=== PATIENT | male | born 1940 | race American Indian/Alaskan Native ===

== ENCOUNTER 2021-08-15 18:00 | Inpatient (IN) | payer MEDICARE ==
[2021-08-15] MEDS ORDERED: SODIUM CHLORIDE 0.9% 1000 ML IV SOLN IV ONE (21:12)
--- NOTE | 2021-08-15 21:18 | Emergency Department Report ---
ED General Adult HPI - General Chief complaint: Medical Clearance Stated complaint: FEEDING TUBE REPLACEMENT Time Seen by Provider: 08/15/21 21:05 Source: EMS ( EMS documentation not available at time of chart dictation ), RN notes reviewed, old records reviewed Mode of arrival: Stretcher Limitations: Other (Patient is demented and a poor historian) - History of Present Illness Initial comments: Primary CARE doctor: Dr. Edward Pierce This is an elderly 80-year-old gentleman, with a past medical history of Alzheimer's disease, cerebral atherosclerosis, renal insufficiency, major depressive disorder, benign neoplasm of prostate, and hypertension. He is referred to the emergency room [facility] his local [facility], with a [facility] written complaint of "decreased eating, loud coughing/daughter needs feeding tube placement." Temperature documented from fci is 98 degrees, blood pressure 131/65, respirations 17, pulse 69, O2 sat 95% on room air. In the emergency room, the patient is awake and demented. He is moving 4 extremities. The patient was able to eat in the emergency room without difficulty. He is found to have a temperature of 100.8 axillary here in the emergency room. Daughter is Georgina Hussein; [id number]. Patient demented, not able to describe the qualitative nature of symptoms, exacerbating factors relieving f actors or aggravating factors. Enclose [facility] paperwork indicates that this patient is a full code. -: unknown - Related Data Allergies Allergy/AdvReac Type Severity Reaction Status Date / Time CLIFF Inhibitors AdvReac Unknown Verified 08/15/21 18:20 donepezil [From Aricept] AdvReac Unknown Verified 08/15/21 18:20 Penicillins AdvReac Unknown Verified 08/15/21 18:20 ED Review of Systems ROS: Stated complaint: FEEDING TUBE REPLACEMENT Other details as noted in HPI Comment: Unobtainable due to pts medical conditions ED Physical Exam - General Limitations: Other (Patient is demented) General appearance: in no apparent distress - Head Head exam: Present: atraumatic, normocephalic - Eye Eye exam: Present: normal appearance - ENT ENT exam: Present: mucous membranes dry, normal external ear exam - Neck Neck exam: Present: normal inspection, full ROM. Absent: tenderness, meningismus - Respiratory Respiratory exam: Present: rhonchi, decreased breath sounds - Cardiovascular Cardiovascular Exam: Present: regular rate, normal rhythm, normal heart sounds. Absent: bradycardia, tachycardia, irregular rhythm, systolic murmur, diastolic murmur, rubs, gallop - GI/Abdominal GI/Abdominal exam: Present: soft. Absent: distended, tenderness, guarding, rebound, rigid, pulsatile mass - Rectal Rectal exam: Present: deferred - Extremities Exam Extremities exam: Present: normal inspection, other (2+ pulses noted in the bilateral upper and lower extremities. There is no palpable cord. negative Homans sign. Muscular compartments are soft. The pelvis is stable.). Absent: calf tenderness - Back Exam Back exam: Present: normal inspection. Absent: tenderness, CVA tenderness (R), CVA tenderness (L), paraspinal tenderness, vertebral tenderness - Neurological Exam Neurological exam: Present: other (The patient is awake. The patient was 4 extremities. The patient is demented.) - Psychiatric Psychiatric exam: Present: other (The patient is nonverbal) - Skin Skin exam: Present: warm, dry, intact, normal color. Absent: rash ED Course Vital Signs 08/15/21 08/15/21 08/15/21 18:17 21:10 22:20 Temperature 100.8 F H 100.9 F H Pulse Rate 74 Blood Pressure 128/68 [Left] O2 Sat by Pulse 99 Oximetry - Reevaluation(s) Reevaluation #1: 08/15/21 21:17 Differential diagnosis, including but not limited to: Pneumonia, UTI, dehydration, dementia, failure to thrive Assessment and plan: 80-year-old gentleman with change in behavior, decreased appetite, coughing, and fever, suspicious for invasive bacterial illness. Patient is demented and essentially nonverbal. Physical exam noncontributory with the exception of fever. Obtain CT scan of the brain to exclude bleed, x-ray the chest, laboratory studies, EKG, and urinalysis. Start IV fluids. Reassess. Anticipate admission to the medical service for antibiotics and supportive care. Reevaluation #2: 08/15/21 21:18 Patient fed in the emergency room, and passed swallow screen. 08/15/21 22:22 Rectal temperature 100.9 degrees. Found to have hypernatremia, and hypokalemia. Urinalysis pending. Chest x-ray unremarkable. Noncontrast CT scan of the b rain negative for acute findings. IV fluids ordered. We will cover empirically with ceftriaxone. A third generation cephalosporin is structurally dissimilar to penicillin, and is statistically unlikely to cause anaphylactic or anaphylactoid reaction. Hospital physician is paged to arrange admission Reevaluation #3: 08/15/21 22:46 Dr Yuki Mauricio to admit to [facility] ED Medical Decision Making - Lab Data Result diagrams: 08/15/21 21:25 08/15/21 21:25 Vital Signs 08/15/21 08/15/21 18:17 21:10 Temperature 100.8 F H Pulse Rate 74 Blood Pressure 128/68 [Left] O2 Sat by Pulse 99 Oximetry Axillary temperature 100.8 degrees. Lab Results 08/15/21 08/15/21 08/15/21 Range/Units 21:25 21:25 21:25 WBC 13.4 H (4.5-11.0) K/mm3 RBC 4.16 (3.65-5.03) M/mm3 Hgb 12.5 (11.8-15.2) gm/dl Hct 38.6 (35.5-45.6) % MCV 93 (84-94) fl MCH 30 (28-32) pg MCHC 32 (32-34) % RDW 13.4 (13.2-15.2) % Plt Count 330 (140-440) K/mm3 Lymph % (Auto) 5.3 L (13.4-35.0) % [place] % (Auto) 6.7 (0.0-7.3) % Eos % (Auto) 0.2 (0.0-4.3) % Baso % (Auto) 0.2 (0.0-1.8) % Lymph # (Auto) 0.7 L (1.2-5.4) K/mm3 [place] # (Auto) 0.9 H (0.0-0.8) K/mm3 Eos # (Auto) 0.0 (0.0-0.4) K/mm3 Baso # (Auto) 0.0 (0.0-0.1) K/mm3 Seg Neutrophils % 87.6 H (40.0-70.0) % Seg Neutrophils # 11.7 H (1.8-7.7) K/mm3 PT 15.2 H (12.2-14.9) Sec. INR 1.08 (0.87-1.13) APTT 40.4 H (24.2-36.6) Sec. Sodium 152 H (137-145) mmol/L Potassium 3.4 L (3.6-5.0) mmol/L Chloride 112.0 H (98-107) mmol/L Carbon Dioxide 26 (22-30) mmol/L Anion Gap 17 mmol/L BUN 20 (9-20) mg/dL Creatinine 0.8 (0.8-1.3) mg/dL Estimated GFR > 60 ml/min BUN/Creatinine Ratio 25 % Glucose 164 H (75-100) mg/dL Calcium 9.2 (8.4-10.2) mg/dL Magnesium 2.70 H (1.7-2.3) mg/dL Total Bilirubin 0.30 (0.1-1.2) mg/dL AST 24 (5-40) units/L ALT 14 (7-56) units/L Alkaline Phosphatase 72 (35-129) units/L Total Creatine Kinase 66 (55-170) units/L Troponin T < 0.010 (0.00-0.029) ng/mL Total Protein 7.5 (6.3-8.2) g/dL Albumin 3.3 L (3.9-5) g/dL Albumin/Globulin Ratio 0.8 % - EKG Data -: EKG Interpreted by Oh EKG shows normal: sinus rhythm Rate: normal - EKG Data When compared to previous EKG there are: previous EKG unavailable 08/15/21 22:21 The EKG is interpreted at 22: 12 Sinus rhythm, 82 bpm. Normal axis, normal P wave axis, left ventricular hypertrophy, QTC 5 6 1 ms. Abnormal EKG. Not a STEMI. - Radiology Data Radiology results: report reviewed, image reviewed CT HEAD WITHOUT CONTRAST INDICATION / CLINICAL INFORMATION: Dementia, decreased appetite, change in behavior. TECHNIQUE: All CT scans at this location are performed using CT dose reduction for ALARA by means of automated exposure control. COMPARISON: None available. FINDINGS: HEMORRHAGE: No evidence of intracranial hemorrhage or extra-axial fluid collection. EXTRA-AXIAL SPACES: Cortical sulci and sylvian fissures are enlarged reflecting a degree of parenchymal volume loss which is much greater than expected even allowing for the patient's age of 80 years. Basilar cisterns have an unremarkable appearance. VENTRICULAR SYSTEM: The third and lateral ventricles are enlarged reflecting presence of age related parenchymal volume loss. CEREBRAL PARENCHYMA: Periventricular and deep white matter lucency is observed. This is probably secondary to microvascular ischemic change. There is no indication of recent infarction. No areas of encephalomalacia are identified. Profound temporal lobe atrophy is present bilaterally. In addition there is disproportionate bilateral frontal lobe atrophy. Possibility of a frontopolar dementia versus Alzheimer's dementia is considered. MIDLINE SHIFT OR HERNIATION: There is no mass effect. CEREBELLUM / BRAINSTEM: Brainstem has an unremarkable appearance. Moderate cerebellar atrophy is noted. MIDLINE STRUCTURES:Pituitary gland has an unr emarkable appearance. No abnormalities are seen in the pineal region. INTRACRANIAL VESSELS:Calcified atherosclerotic plaque is present along the course of the cavernous segments of both internal carotid arteries. CRANIOCERVICAL JUNCTION:No significant abnormality. ORBITS: Status post right- sided cataract surgery. No additional abnormality. SOFT TISSUES of HEAD: No significant abnormality. CALVARIUM: Evaluation of bone windows reveals no abnormalities. PARANASAL SINUSES / MASTOID AIR CELLS: Retention cyst or polyp is identified at the base of the right maxillary sinus. Mucosal thickening is pre sent within anterior ethmoid air cells on the right. Paranasal sinuses otherwise appear clear. Normal pneumatization of the mastoid air cells is observed bilaterally. ADDITIONAL FINDINGS: None. IMPRESSION: 1. Profound bilateral frontal lobe and temporal lobe atrophy. 2. No acute intracranial abnormality. Signer Name: Alfonso Frnaks MD Signed: 08/15/2021 8:42 PM Workstation Name: [id number] Critical care attestation.: If time is entered above; I have spent that time in minutes in the direct care of this critically ill patient, excluding procedure time. ED Disposition Clinical Impression: Acute febrile illness, Dementia, Hypernatremia, Hypokalemia, Dehydration, SIRS (systemic inflammatory response syndrome) Disposition: 09 ADMITTED INPATIENT Is pt being admited?: Yes Does the pt Need Aspirin: No Condition: Fair
--- NOTE | 2021-08-15 21:47 | Cat Scan Report ---
CT HEAD WITHOUT CONTRAST INDICATION / CLINICAL INFORMATION: Dementia, decreased appetite, change in behavior. TECHNIQUE: All CT scans at this location are performed using CT dose reduction for ALARA by means of automated e xposure control. COMPARISON: None available. FINDINGS: HEMORRHAGE: No evidence of intracranial hemorrhage or extra-axial fluid collection. EXTRA-AXIAL SPACES: Cortical sulci and sylvian fissures are enlarged reflecting a degree of parenchym al volume loss which is much greater than expected even allowing for the patient's age of 80 years. B asilar cisterns have an unremarkable appearance. VENTRICULAR SYSTEM: The third and lateral ventricles are enlarged reflecting presence of age related parenchymal volume loss. CEREBRAL PARENCHYMA: Periventricular and deep white matter lucency is observed. This is probably seco ndary to microvascular ischemic change. There is no indication of recent infarction. No areas of ence phalomalacia are identified. Profound temporal lobe atrophy is present bilaterally. In addition there is disproportionate bilateral frontal lobe atrophy. Possibility of a frontopolar dementia versus Alz heimer's dementia is considered. MIDLINE SHIFT OR HERNIATION: There is no mass effect. CEREBELLUM / BRAINSTEM: Brainstem has an unremarkable appearance. Moderate cerebellar atrophy is note d. MIDLINE STRUCTURES:Pituitary gland has an unremarkable appearance. No abnormalities are seen in the p ineal region. INTRACRANIAL VESSELS:Calcified atherosclerotic plaque is present along the course of the cavernous se gments of both internal carotid arteries. CRANIOCERVICAL JUNCTION:No significant abnormality. ORBITS: Status post right-sided cataract surgery. No additional abnormality. SOFT TISSUES of HEAD: No significant abnormality. CALVARIUM: Evaluation of bone windows reveals no abnormalities. PARANASAL SINUSES / MASTOID AIR CELLS: Retention cyst or polyp is identified at the base of the right maxillary sinus. Mucosal thickening is present within anterior ethmoid air cells on the right. Paran mayank sinuses otherwise appear clear. Normal pneumatization of the mastoid air cells is observed bilat erally. ADDITIONAL FINDINGS: None. IMPRESSION: 1. Profound bilateral frontal lobe and temporal lobe atrophy. 2. No acute intracranial abnormality. Signer Name: Alfonso Franks MD Signed: 08/15/2021 9:42 PM Workstation Name: [id number]
[2021-08-15 21:49] LABS: Basophils % (Auto) 0.2 % (0.0-1.8); Eosinophils % (Auto) 0.2 % (0.0-4.3); Hematocrit 38.6 % (35.5-45.6); Hemoglobin 12.5 gm/dl (11.8-15.2); Lymphocytes # (Auto) 0.7 K/mm3 (1.2-5.4); Lymphocytes % (Auto) 5.3 % (13.4-35.0); Mean Corpuscular HGB Conc 32 % (32-34); Mean Corpuscular Volume 93 fl (84-94); Monocytes # (Auto) 0.9 K/mm3 (0.0-0.8); Monocytes % (Auto) 6.7 % (0.0-7.3); Platelet Count 330 K/mm3 (140-440); Red Blood Count 4.16 M/mm3 (3.65-5.03); Red Cell Distribution Width 13.4 % (13.2-15.2)
[2021-08-15 22:05] LABS: Alanine Aminotransferase 14 units/L (7-56); Albumin 3.3 g/dL (3.9-5); BUN/Creatinine Ratio 25; Blood Urea Nitrogen 20 mg/dL (9-20); Calcium 9.2 mg/dL (8.4-10.2); Hemolysis Index 5
[2021-08-15 22:19] LABS: INR 1.08 (0.87-1.13)
[2021-08-15 22:20] LABS: Partial Thromboplastin Time 40.4 Sec. (24.2-36.6)
[2021-08-15] MEDS ORDERED: POTASSIUM CHLORIDE 10 MEQ 10 MEQ/100 ML BAG IV ONE (22:20)
[2021-08-15] MEDS ORDERED: ACETAMINOPHEN 650 MG RECT SUPP PR ONE (22:21)
[2021-08-15] MEDS ORDERED: cefTRIAXone/NS 1 GM/50 ML 1 GM/50 ML BAG IV ONE (22:22)
--- NOTE | 2021-08-15 23:04 | XRay Report ---
CHEST 1 VIEW 08/15/2021 9:47 PM INDICATION / CLINICAL INFORMATION: Fever. Decreased appetite. COMPARISON: None available. FINDINGS: SUPPORT DEVICES: None. HEART / MEDIASTINUM: No significant abnormality. LUNGS / PLEURA: There are bibasilar airspace opacities. The lungs are otherwise clear. No significant pleural effusion. No pneumothorax. ADDITIONAL FINDINGS: No significant additional findings. IMPRESSION: Bibasilar airspace opacities could represent pneumonia given the provided history of fever. Atelectas is is also a consideration. Signer Name: Mandeep Schaffer MD Signed: 08/15/2021 11:00 PM Workstation Name: [id number]
[2021-08-15] MEDS ORDERED: ACETAMINOPHEN 325 MG TAB PO PRN (23:16)
[2021-08-15] MEDS ORDERED: MORPHINE 2 MG/1 ML INJ IV PRN (23:16)
[2021-08-15] MEDS ORDERED: ONDANSETRON 4 MG/2 ML INJ IV PRN (23:16)
[2021-08-15] MEDS ORDERED: MAGNESIUM HYDROXIDE (MOM) ORAL LIQD UDC PO PRN (23:16)
[2021-08-15] MEDS ORDERED: MORPHINE 4 MG/1 ML INJ IV PRN (23:16)
[2021-08-15] MEDS ORDERED: SODIUM CHLORIDE 0.9% 1000 ML 1,000 ML ONE (23:22)
--- NOTE | 2021-08-15 23:28 | History and Physical Report ---
History of Present Illness Date of examination: 08/15/21 Date of admission: 08/15/2021 Chief complaint: Weakness Fever History of present illness: 80-year-old male with known history of dementia, cerebral atherosclerosis, BPH, hypertension, renal insufficiency resident of a [facility] Sent to the emergency room today for evaluation of generalized weakness and Fe jyoti Most of the history was obtained from the ER staff as patient. Upon arrival in the emergency room patient had a temperature of 100.8 F.(Axillary) Work-up in the emergency room reveals leukocytosis of 13.4, sodium of 152, potassium of 3.4 lactic acid of 3.3. Chest x-ray shows bibasilar airspace opacities which could represent pneumonia. Past History Past Medical History: hypertension, renal failure, other (Dementia,depression,BPH) Past Surgical History: No surgical history Social history: other (Lives in a Retirement) Family history: no significant family history Medications and Allergies Allergies Allergy/AdvReac Type Severity Reaction Status Date / Time CLIFF Inhibitors AdvReac Unknown Verified 08/15/21 18:20 donepezil [From Aricept] AdvReac Unknown Verified 08/15/21 18:20 Penicillins AdvReac Unknown Verified 08/15/21 18:20 Active Meds: Active Medications Acetaminophen (Acetaminophen 325 Mg Tab) 650 mg PO Q4H PRN PRN Reason: Pain MILD(1-3)/Fever >100.5/JONES Sodium Chloride (Nacl 0.45% 1000 Ml) 1,000 mls @ 125 mls/hr IV DIRECT SACHA Ondansetron HCl (Ondansetron 4 Mg/2 Ml Inj) 4 mg IV Q8H PRN PRN Reason: Nausea And Vomiting Sodium Chloride (Sodium Chloride 0.9% 10 Ml Flush Syringe) 10 ml IV BID SACHA Sodium Chloride (Sodium Chloride 0.9% 10 Ml Flush Syringe) 10 ml IV PRN PRN PRN Reason: LINE FLUSH Review of Systems ROS unobtainable: due to mental status Exam - Constitutional Vitals: Temp Pulse Resp BP Pulse Ox 100.9 F H 74 128/68 99 08/15/21 22:20 08/15/21 18:17 08/15/21 18:17 08/15/21 18:17 General appearance: Present: no acute distress, well-nourished, other (Dry oral Mucosa) - EENT Eyes: Present: PERRL, EOM intact. Absent: scleral icterus ENT: hearing intact, clear oral mucosa, dentition normal - Neck Neck: Present: supple, normal ROM - Respiratory Respiratory effort: normal Respiratory: bilateral: CTA - Cardiovascular Rhythm: regular Heart Sounds: Present: S1 & S2. Absent: gallop, systolic murmur, diastolic murmur, rub, click - Extremities Extremities: no ischemia, pulses intact, pulses symmetrical, No edema, normal temperature, normal color, Full ROM Peripheral Pulses: within normal limits - Abdominal General gastrointestinal: Present: soft, non-tender, non-distended, normal bowel sounds. Absent: mass - Integumentary Integumentary: Present: clear, warm, dry, decreased turgor. Absent: rash - Musculoskeletal Musculoskeletal: strength equal bilaterally - Psychiatric Psychiatric: cooperative - Neurologic Neurologic: CNII-XII intact, moves all extremities, other (Nonverbal) HEART Score - HEART Score Troponin: Troponin T < 0.010 ng/mL (0.00-0.029) 08/15/21 21:25 Results - Labs CBC & Chem 7: 08/15/21 21:25 08/15/21 21:25 Labs: Abnormal lab results 08/15/21 08/15/21 08/15/21 Range/Units 21:25 21:25 21:25 WBC 13.4 H (4.5-11.0) K/mm3 Lymph % (Auto) 5.3 L (13.4-35.0) % Lymph # (Auto) 0.7 L (1.2-5.4) K/mm3 [place] # (Auto) 0.9 H (0.0-0.8) K/mm3 Seg Neutrophils % 87.6 H (40.0-70.0) % Seg Neutrophils # 11.7 H (1.8-7.7) K/mm3 PT 15.2 H (12.2-14.9) Sec. APTT 40.4 H (24.2-36.6) Sec. Sodium 152 H (137-145) mmol/L Potassium 3.4 L (3.6-5.0) mmol/L Chloride 112.0 H (98-107) mmol/L Glucose 164 H (75-100) mg/dL Lactic Acid (0.7-2.0) mmol/L Magnesium 2.70 H (1.7-2.3) mg/dL Albumin 3.3 L (3.9-5) g/dL 08/15/21 Range/Units 21:25 WBC (4.5-11.0) K/mm3 Lymph % (Auto) (13.4-35.0) % Lymph # (Auto) (1.2-5.4) K/mm3 [place] # (Auto) (0.0-0.8) K/mm3 Seg Neutrophils % (40.0-70.0) % Seg Neutrophils # (1.8-7.7) K/mm3 PT (12.2-14.9) Sec. APTT (24.2-36.6) Sec. Sodium (137-145) mmol/L Potassium (3.6-5.0) mmol/L Chloride (98-107) mmol/L Glucose (75-100) mg/dL Lactic Acid 3.30 H* (0.7-2.0) mmol/L Magnesium (1.7-2.3) mg/dL Albumin (3.9-5) g/dL Assessment and Plan - Patient Problems (1) Acute febrile illness Current Visit: Yes Status: Acute Plan to address problem: Etiology is unclear. Possible underlying pneumonia. Patient placed on empiric IV antibiotics. Will await culture results. (2) Dehydration Current Visit: Yes Status: Acute Plan to address problem: Patient commenced on IV fluid. Will monitor inputs and outputs. Will monitor chemistry closely. (3) Dementia Current Visit: Yes Status: Acute Plan to address problem: Will place patient on his routine home medications. (4) Hypernatremia Current Visit: Yes Status: Acute Plan to address problem: Possibly secondary to dehydration. Will continue on IV fluid and monitor chemistry. (5) Hypokalemia Current Visit: Yes Status: Acute Plan to address problem: Potassium will be repleted and will monitor chemistry. (6) DVT prophylaxis Current Visit: Yes Status: Acute Plan to address problem: Patient placed on subcutaneous heparin. (7) Full code status Current Visit: Yes Status: Acute Plan to address problem: Patient is full code.
[2021-08-16 00:28] LABS: Bilirubin,Urine NEG (Negative); Blood,Urine SM (Negative); Color,Urine Yellow (Yellow); Mucus,Urine 1+ /HPF; Urobilinogen,Urine < 2.0 mg/dL (<2.0)
[2021-08-16] MEDS: HEPARIN 5,000 UNIT/1 ML VIAL SUB-Q SCH ×3 (05:09→22:47)
[2021-08-16] MEDS: SODIUM CHLORIDE 0.45% 1000 ML 1,000 ML IV SCH ×2 (05:29→16:36)
[2021-08-16] MEDS ORDERED: AZITHROMYCIN/NS 500 MG/250 ML 500 MG/250 ML BAG IV SCH (08:00)
[2021-08-16 10:08] LABS: Basophils % (Auto) 0.2 % (0.0-1.8); Eosinophils # (Auto) 0.1 K/mm3 (0.0-0.4); Eosinophils % (Auto) 0.9 % (0.0-4.3); Hematocrit 34.2 % (35.5-45.6); Hemoglobin 10.9 gm/dl (11.8-15.2); Lymphocytes % (Auto) 8.9 % (13.4-35.0); Mean Corpuscular HGB Conc 32 % (32-34); Mean Corpuscular Volume 93 fl (84-94); Monocytes # (Auto) 0.9 K/mm3 (0.0-0.8); Monocytes % (Auto) 7.4 % (0.0-7.3); Platelet Count 310 K/mm3 (140-440); Red Blood Count 3.69 M/mm3 (3.65-5.03); Red Cell Distribution Width 13.1 % (13.2-15.2)
[2021-08-16 10:17] LABS: BUN/Creatinine Ratio 23; Blood Urea Nitrogen 14 mg/dL (9-20); Calcium 8.9 mg/dL (8.4-10.2); Hemolysis Index 10
--- NOTE | 2021-08-16 11:06 | Progress Note ---
Assessment and Plan Assessment and plan: 80-year-old male with known history of dementia, cerebral atherosclerosis, BPH, hypertension, renal insufficiency resident of a halfway Sent to the emergency room today for evaluation of generalized weakness and Fever. The patient is nonverbal and the history was obtained from the ER staff and the daughter. Upon arrival in the emergency room patient had a temperature of 100.8 F.(Axillary) Work-up in the emergency room reveals leukocytosis of 13.4, sodium of 152, potassium of 3.4 lactic acid of 3.3. Chest x-ray revealed bibasilar airspace opacities [employer] sales representative of pneumonia. The patient is admitted with diagnosis of sepsis, present on admission, bilateral pneumonia, Alzheimer's dementia, hyponatremia, hypokalemia. Severe sepsis. Patient meets criteria given the leukocytosis, fever and diagnosis of pneumonia as well as lactic acidosis. Bilateral pneumonia Alzheimer's dementia. Patient is nonverbal at baseline Hypernatremia Hypokalemia Protein calorie malnutrition. 08/16/2021. Continue IV antibiotics and follow-up blood, sputum and urine cultures. Continue hypotonic IV fluid hydration with half-normal saline for hypernatremia. Replete potassium as needed. History Interval history: No new issues overnight Hospitalist Physical - Constitutional Vitals: Temp Pulse Resp BP Pulse Ox 98.6 F 78 22 156/85 96 08/16/21 05:00 08/16/21 05:00 08/16/21 05:00 08/16/21 05:00 08/16/21 05:00 General appearance: Present: no acute distress, well-nourished, other (Dry oral Mucosa) - EENT Eyes: Present: PERRL, EOM intact ENT: hearing intact, clear oral mucosa, dentition normal - Neck Neck: Present: supple, normal ROM - Respiratory Respiratory effort: normal Respiratory: bilateral: CTA - Cardiovascular Rhythm: regular Heart Sounds: Present: S1 & S2. Absent: gallop, rub - Extremities Extremities: no ischemia, No edema, Full ROM - Abdominal General gastrointestinal: soft, non-tender, non-distended, normal bowel sounds - Integumentary Integumentary: Present: clear, warm, dry - Neurologic Neurologic: CNII-XII intact, moves all extremities HEART Score - HEART Score Troponin: Troponin T < 0.010 ng/mL (0.00-0.029) 08/15/21 21:25 Results - Labs CBC & Chem 7: 08/16/21 09:44 08/16/21 09:44 Labs: Laboratory Last Values WBC 11.6 K/mm3 (4.5-11.0) H 08/16/21 09:44 RBC 3.69 M/mm3 (3.65-5.03) 08/16/21 09:44 Hgb 10.9 gm/dl (11.8-15.2) L 08/16/21 09:44 Hct 34.2 % (35.5-45.6) L 08/16/21 09:44 MCV 93 fl (84-94) 08/16/21 09:44 MCH 30 pg (28-32) 08/16/21 09:44 MCHC 32 % (32-34) 08/16/21 09:44 RDW 13.1 % (13.2-15.2) L 08/16/21 09:44 Plt Count 310 K/mm3 (140-440) 08/16/21 09:44 Lymph % (Auto) 8.9 % (13.4-35.0) L 08/16/21 09:44 [place] % (Auto) 7.4 % (0.0-7.3) H 08/16/21 09:44 Eos % (Auto) 0.9 % (0.0-4.3) 08/16/21 09:44 Baso % (Auto) 0.2 % (0.0-1.8) 08/16/21 09:44 Lymph # (Auto) 1.0 K/mm3 (1.2-5.4) L 08/16/21 09:44 [place] # (Auto) 0.9 K/mm3 (0.0-0.8) H 08/16/21 09:44 Eos # (Auto) 0.1 K/mm3 (0.0-0.4) 08/16/21 09:44 Baso # (Auto) 0.0 K/mm3 (0.0-0.1) 08/16/21 09:44 Seg Neutrophils % 82.6 % (40.0-70.0) H 08/16/21 09:44 Seg Neutrophils # 9.6 K/mm3 (1.8-7.7) H 08/16/21 09:44 PT 15.2 Sec. (12.2-14.9) H 08/15/21 21:25 INR 1.08 (0.87-1.13) 08/15/21 21:25 APTT 40.4 Sec. (24.2-36.6) H 08/15/21 21:25 Sodium 152 mmol/L (137-145) H 08/16/21 09:44 Potassium 3.4 mmol/L (3.6-5.0) L 08/16/21 09:44 Chloride 115.4 mmol/L (98-107) H 08/16/21 09:44 Carbon Dioxide 26 mmol/L (22-30) 08/16/21 09:44 Anion Gap 14 mmol/L 08/16/21 09:44 BUN 14 mg/dL (9-20) 08/16/21 09:44 Creatinine 0.6 mg/dL (0.8-1.3) L 08/16/21 09:44 Estimated GFR > 60 ml/min 08/16/21 09:44 BUN/Creatinine Ratio 23 % 08/16/21 09:44 Glucose 92 mg/dL (75-100) 08/16/21 09:44 Lactic Acid 1.10 mmol/L (0.7-2.0) 08/16/21 09:44 Calcium 8.9 mg/dL (8.4-10.2) 08/16/21 09:44 Magnesium 2.70 mg/dL (1.7-2.3) H 08/15/21 21:25 Total Bilirubin 0.30 mg/dL (0.1-1.2) 08/15/21 21:25 AST 24 units/L (5-40) 08/15/21 21:25 ALT 14 units/L (7-56) 08/15/21 21:25 Alkaline Phosphatase 72 units/L (35-129) 08/15/21 21:25 Total Creatine Kinase 66 units/L (55-170) 08/15/21 21:25 Troponin T < 0.010 ng/mL (0.00-0.029) 08/15/21 21:25 Total Protein 7.5 g/dL (6.3-8.2) 08/15/21 21:25 Albumin 3.3 g/dL (3.9-5) L 08/15/21 21:25 Albumin/Globulin Ratio 0.8 % 08/15/21 21:25 Urine Color Yellow (Yellow) 08/16/21 00:02 Urine Turbidity Clear (Clear) 08/16/21 00:02 Urine pH 5.0 (5.0-7.0) 08/16/21 00:02 Ur Specific [place] 1.025 (1.003-1.030) 08/16/21 00:02 Urine Protein 30 mg/dl mg/dL (Negative) 08/16/21 00:02 Urine Glucose (UA) Neg mg/dL (Negative) 08/16/21 00:02 Urine Ketones Neg mg/dL (Negative) 08/16/21 00:02 Urine Blood Sm (Negative) 08/16/21 00:02 Urine Nitrite Neg (Negative) 08/16/21 00:02 Urine Bilirubin Neg (Negative) 08/16/21 00:02 Urine Urobilinogen < 2.0 mg/dL (<2.0) 08/16/21 00:02 Ur Leukocyte Esterase Neg (Negative) 08/16/21 00:02 Urine WBC (Auto) 3.0 /HPF (0.0-6.0) 08/16/21 00:02 Urine RBC (Auto) 5.0 /HPF (0.0-6.0) 08/16/21 00:02 U Epithel Cells (Auto) < 1.0 /HPF (0-13.0) 08/16/21 00:02 Urine Mucus 1+ /HPF 08/16/21 00:02 Microbiology: Microbiology 08/15/21 21:25 Peripheral/Venous Blood Culture - Preliminary Culture in Progress 08/15/21 21:25 Peripheral/Venous Blood Culture - Preliminary Culture in Progress Carpenter/IV: Voiding Method Indwelling Catheter Active Medications - Current Medications Current Medications: Generic Name Dose Route Start Last Admin Trade Name Freq PRN Reason Stop Dose Admin Acetaminophen 650 mg 08/15/21 23:16 Acetaminophen 325 Mg Tab PO Q4H PRN Pain MILD(1-3)/Fever >100.5/JONES Azithromycin 500 mg 08/17/21 10:00 Azithromycin 250 Mg Tab PO 08/20/21 10:01 QDAY SACHA Heparin Sodium (Porcine) 5,000 unit 08/16/21 06:00 08/16/21 05:09 Heparin 5,000 Unit/1 Ml Vial SUB-Q 5,000 unit Q8HR SACHA Administration Sodium Chloride 1,000 mls @ 125 mls/hr 08/15/21 23:45 08/16/21 05:29 Nacl 0.45% 1000 Ml IV 125 mls/hr DIRECT SACHA Administration Ceftriaxone Sodium 1 gm in 50 mls @ 100 mls/hr 08/16/21 22:00 Rocephin/Ns 1 Gm/50 Ml IV 08/20/21 23:59 Q24H [facility] Protocol Azithromycin 500 mg in 250 mls @ 250 mls/hr 08/16/21 08:00 Zithromax/Ns IV 08/16/21 14:00 Q24H [facility] Protocol Magnesium Hydroxide 30 ml 08/15/21 23:16 Magnesium Hydroxide (Mom) Oral Liqd Udc PO Q4H PRN Constipation Morphine Sulfate 2 mg 08/15/21 23:16 Morphine 2 Mg/1 Ml Inj IV Q4H PRN Pain, Moderate (4-6) Morphine Sulfate 4 mg 08/15/21 23:16 Morphine 4 Mg/1 Ml Inj IV Q4H PRN Pain , Severe (7-10) Ondansetron HCl 4 mg 08/15/21 23:16 Ondansetron 4 Mg/2 Ml Inj IV Q8H PRN Nausea And Vomiting Sodium Chloride 10 ml 08/16/21 10:00 Sodium Chloride 0.9% 10 Ml Flush Syringe IV BID SACHA Sodium Chloride 10 ml 08/15/21 23:16 Sodium Chloride 0.9% 10 Ml Flush Syringe IV PRN PRN LINE FLUSH
[2021-08-16] MEDS: cefTRIAXone/NS 1 GM/50 ML 1 GM/50 ML BAG IV SCH (22:47)
[2021-08-17] MEDS: SODIUM CHLORIDE 0.45% 1000 ML 1,000 ML IV SCH ×2 (03:09→12:08)
[2021-08-17] MEDS: AZITHROMYCIN 250 MG TAB PO SCH (09:25)
--- NOTE | 2021-08-17 12:43 | Progress Note ---
Assessment and Plan Assessment and plan: 80-year-old male with known history of dementia, cerebral atherosclerosis, BPH, hypertension, renal insufficiency resident of a [facility]ci Sent to the emergency room today for evaluation of generalized weakness and Fever. The patient is nonverbal and the history was obtained from the ER staff and the daughter. Upon arrival in the emergency room patient had a temperature of 100.8 F.(Axillary) Work-up in the emergency room reveals leukocytosis of 13.4, sodium of 152, potassium of 3.4 lactic acid of 3.3. Chest x-ray revealed bibasilar airspace opacities sales development representative of pneumonia. The patient is admitted with diagnosis of sepsis, present on admission, bilateral pneumonia, Alzheimer's dementia, hyponatremia, hypokalemia. Severe sepsis. Patient meets criteria given the leukocytosis, fever and diagnosis of pneumonia as well as lactic acidosis. Bilateral pneumonia Alzheimer's dementia. Patient is nonverbal at baseline Hypernatremia Hypokalemia Protein calorie malnutrition. 08/16/2021. Continue IV antibiotics and follow-up blood, sputum and urine cultures. Continue hypotonic IV fluid hydration with half-normal saline for hypernatremia. Replete potassium as needed. 08/17/2021. Patient has slight improvement in leukocytosis and blood cultures remain negative. Speech therapy recommends pured diet with thin liquids. Continue hypertonic saline for hypernatremia. Anticipate discharge in the next 1 to 2 days History Interval history: No new issues overnight Hospitalist Physical - Constitutional Vitals: Temp Pulse Resp BP Pulse Ox 98.0 F 60 16 153/85 98 08/17/21 05:38 08/17/21 05:38 08/17/21 05:38 08/17/21 05:38 08/17/21 05:38 General appearance: Present: no acute distress, well-nourished, other (Dry oral Mucosa) - EENT Eyes: Present: PERRL, EOM intact ENT: hearing intact, clear oral mucosa, dentition normal - Neck Neck: Present: supple, normal ROM - Respiratory Respiratory effort: normal Respiratory: bilateral: CTA - Cardiovascular Rhythm: regular Heart Sounds: Present: S1 & S2. Absent: gallop, rub - Extremities Extremities: no ischemia, No edema, Full ROM - Abdominal General gastrointestinal: soft, non-tender, non-distended, normal bowel sounds - Integumentary Integumentary: Present: clear, warm, dry - Neurologic Neurologic: CNII-XII intact, moves all extremities HEART Score - HEART Score Troponin: Troponin T < 0.010 ng/mL (0.00-0.029) 08/15/21 21:25 Results - Labs CBC & Chem 7: 08/16/21 09:44 08/16/21 09:44 Labs: Laboratory Last Values WBC 11.6 K/mm3 (4.5-11.0) H 08/16/21 09:44 RBC 3.69 M/mm3 (3.65-5.03) 08/16/21 09:44 Hgb 10.9 gm/dl (11.8-15.2) L 08/16/21 09:44 Hct 34.2 % (35.5-45.6) L 08/16/21 09:44 MCV 93 fl (84-94) 08/16/21 09:44 MCH 30 pg (28-32) 08/16/21 09:44 MCHC 32 % (32-34) 08/16/21 09:44 RDW 13.1 % (13.2-15.2) L 08/16/21 09:44 Plt Count 310 K/mm3 (140-440) 08/16/21 09:44 Lymph % (Auto) 8.9 % (13.4-35.0) L 08/16/21 09:44 [place] % (Auto) 7.4 % (0.0-7.3) H 08/16/21 09:44 Eos % (Auto) 0.9 % (0.0-4.3) 08/16/21 09:44 Baso % (Auto) 0.2 % (0.0-1.8) 08/16/21 09:44 Lymph # (Auto) 1.0 K/mm3 (1.2-5.4) L 08/16/21 09:44 [place] # (Auto) 0.9 K/mm3 (0.0-0.8) H 08/16/21 09:44 Eos # (Auto) 0.1 K/mm3 (0.0-0.4) 08/16/21 09:44 Baso # (Auto) 0.0 K/mm3 (0.0-0.1) 08/16/21 09:44 Seg Neutrophils % 82.6 % (40.0-70.0) H 08/16/21 09:44 Seg Neutrophils # 9.6 K/mm3 (1.8-7.7) H 08/16/21 09:44 PT 15.2 Sec. (12.2-14.9) H 08/15/21 21:25 INR 1.08 (0.87-1.13) 08/15/21 21:25 APTT 40.4 Sec. (24.2-36.6) H 08/15/21 21:25 Sodium 152 mmol/L (137-145) H 08/16/21 09:44 Potassium 3.4 mmol/L (3.6-5.0) L 08/16/21 09:44 Chloride 115.4 mmol/L (98-107) H 08/16/21 09:44 Carbon Dioxide 26 mmol/L (22-30) 08/16/21 09:44 Anion Gap 14 mmol/L 08/16/21 09:44 BUN 14 mg/dL (9-20) 08/16/21 09:44 Creatinine 0.6 mg/dL (0.8-1.3) L 08/16/21 09:44 Estimated GFR > 60 ml/min 08/16/21 09:44 BUN/Creatinine Ratio 23 % 08/16/21 09:44 Glucose 92 mg/dL (75-100) 08/16/21 09:44 Lactic Acid 1.10 mmol/L (0.7-2.0) 08/16/21 09:44 Calcium 8.9 mg/dL (8.4-10.2) 08/16/21 09:44 Magnesium 2.70 mg/dL (1.7-2.3) H 08/15/21 21:25 Total Bilirubin 0.30 mg/dL (0.1-1.2) 08/15/21 21:25 AST 24 units/L (5-40) 08/15/21 21:25 ALT 14 units/L (7-56) 08/15/21 21:25 Alkaline Phosphatase 72 units/L (35-129) 08/15/21 21:25 Total Creatine Kinase 66 units/L (55-170) 08/15/21 21:25 Troponin T < 0.010 ng/mL (0.00-0.029) 08/15/21 21:25 Total Protein 7.5 g/dL (6.3-8.2) 08/15/21 21:25 Albumin 3.3 g/dL (3.9-5) L 08/15/21 21:25 Albumin/Globulin Ratio 0.8 % 08/15/21 21:25 Urine Color Yellow (Yellow) 08/16/21 00:02 Urine Turbidity Clear (Clear) 08/16/21 00:02 Urine pH 5.0 (5.0-7.0) 08/16/21 00:02 Ur Specific [place] 1.025 (1.003-1.030) 08/16/21 00:02 Urine Protein 30 mg/dl mg/dL (Negative) 08/16/21 00:02 Urine Glucose (UA) Neg mg/dL (Negative) 08/16/21 00:02 Urine Ketones Neg mg/dL (Negative) 08/16/21 00:02 Urine Blood Sm (Negative) 08/16/21 00:02 Urine Nitrite Neg (Negative) 08/16/21 00:02 Urine Bilirubin Neg (Negative) 08/16/21 00:02 Urine Urobilinogen < 2.0 mg/dL (<2.0) 08/16/21 00:02 Ur Leukocyte Esterase Neg (Negative) 08/16/21 00:02 Urine WBC (Auto) 3.0 /HPF (0.0-6.0) 08/16/21 00:02 Urine RBC (Auto) 5.0 /HPF (0.0-6.0) 08/16/21 00:02 U Epithel Cells (Auto) < 1.0 /HPF (0-13.0) 08/16/21 00:02 Urine Mucus 1+ /HPF 08/16/21 00:02 Microbiology: Microbiology 08/15/21 21:25 Peripheral/Venous Blood Culture - Preliminary NO GROWTH AFTER 24 HOURS 08/15/21 21:25 Peripheral/Venous Blood Culture - Preliminary NO GROWTH AFTER 24 HOURS Carpenter/IV: Voiding Method Indwelling Catheter Active Medications - Current Medications Current Medications: Generic Name Dose Route Start Last Admin Trade Name Freq PRN Reason Stop Dose Admin Acetaminophen 650 mg 08/15/21 23:16 Acetaminophen 325 Mg Tab PO Q4H PRN Pain MILD(1-3)/Fever >100.5/JONES Azithromycin 500 mg 08/17/21 10:00 08/17/21 09:25 Azithromycin 250 Mg Tab PO 08/20/21 10:01 500 mg QDAY SACHA Administration Heparin Sodium (Porcine) 5,000 unit 08/16/21 06:00 08/16/21 22:47 Heparin 5,000 Unit/1 Ml Vial SUB-Q 5,000 unit Q8HR SACHA Administration Sodium Chloride 1,000 mls @ 125 mls/hr 08/15/21 23:45 08/17/21 12:08 Nacl 0.45% 1000 Ml IV 125 mls/hr DIRECT SACHA Administration Ceftriaxone Sodium 1 gm in 50 mls @ 100 mls/hr 08/16/21 22:00 08/16/21 22:47 Rocephin/Ns 1 Gm/50 Ml IV 08/20/21 23:59 100 mls/hr Q24H SACHA Administration Protocol Magnesium Hydroxide 30 ml 08/15/21 23:16 Magnesium Hydroxide (Mom) Oral Liqd Udc PO Q4H PRN Constipation Morphine Sulfate 2 mg 08/15/21 23:16 Morphine 2 Mg/1 Ml Inj IV Q4H PRN Pain, Moderate (4-6) Morphine Sulfate 4 mg 08/15/21 23:16 Morphine 4 Mg/1 Ml Inj IV Q4H PRN Pain , Severe (7-10) Ondansetron HCl 4 mg 08/15/21 23:16 Ondansetron 4 Mg/2 Ml Inj IV Q8H PRN Nausea And Vomiting Sodium Chloride 10 ml 08/16/21 10:00 08/17/21 09:26 Sodium Chloride 0.9% 10 Ml Flush Syringe IV 10 ml BID SACHA Administration Sodium Chloride 10 ml 08/15/21 23:16 Sodium Chloride 0.9% 10 Ml Flush Syringe IV PRN PRN LINE FLUSH Nutrition/Malnutrition Assess - Dietary Evaluation Nutrition/Malnutrition Findings: Nutrition Notes Start: 08/16/21 16:56 Freq: Status: Active Protocol: Document 08/16/21 16:56 NICK (Rec: 08/16/21 17:05 NICK [email or web address]) Nutrition Notes Need for Assessment generated from: Low BMI Initial or Follow up Brief Note Current Diagnosis CKD(stage I-IV),Hypertension Other Pertinent Diagnosis Febrile Illness, Dehydration, Dementia, BPH. Current Diet Cardiac Diet (since 08/16), Pureed Diet (from 08/17). Height 6 ft Weight 68.1 kg [place] Body Weight (kg) 80.90 BMI 20.3 Intake Prior to Admission Poor Weight change and time frame Pt denies having loss body weight [employer]. At some point during the day, Body Weight was corrected and now Pt is no longer a Low BMI. Weight Status Appropriate Subjective/Other Information RD consult for Low BMI assessment. At some point during the day, Body Weight was corrected and now Pt is no longer a Low BMI. No reports available on Pt's PO intake of meals at the time . Pt is on Room Air, O2 saturation @ 99%, according to Vital Signs notes. Percent of energy/protein needs met: Prescribed Cardiac Diet provides for energy/protein needs (2,230 Kcal/85 g) during LOS. Prescribed Pureed Diet provides for energy/protein needs (1,804 Kcal/77 g) during LOS. Nutrition Intervention Revisit per MD consult or patient Sign Off request: Additional Comments Continue monitoring food tolerance, %PO intake of meals , and BM.
[2021-08-17] MEDS: HEPARIN 5,000 UNIT/1 ML VIAL SUB-Q SCH (16:00)
--- NOTE | 2021-08-17 17:01 | Electrocardiograph Report ---
[facility] Test Date: 2021-08-15 Test Time: 22:12:25 Pat Name: ATUL CARRENO Department: Room: A374 1 Gender: M Lead Electrician: JULIAN : 1940 Requested By: ALVIN MCRAE Order Number: [id number] Reading MD: Uday Lacey Measurements Intervals [place] Rate: 82 P: 0 MN: 73 QRS: 48 QRSD: 82 T: -68 QT: 480 QTc: 561 Interpretive Statements Sinus rhythm with first-degree AV block, or atrial fibrillation with well-controlled ventricular rate Nonspecific T abnormalities, diffuse leads Prolonged QT interval No previous ECG available for comparison Electronically Signed On 08-17-2021 17:01:04 EDT by Uday Lacey
[2021-08-18] MEDS: cefTRIAXone/NS 1 GM/50 ML 1 GM/50 ML BAG IV SCH (02:36)
[2021-08-18] MEDS: HEPARIN 5,000 UNIT/1 ML VIAL SUB-Q SCH ×5 (02:37→21:39)
[2021-08-18 05:12] LABS: Basophils % (Auto) 0.7 % (0.0-1.8); Eosinophils # (Auto) 0.1 K/mm3 (0.0-0.4); Eosinophils % (Auto) 0.8 % (0.0-4.3); Hemoglobin 10.8 gm/dl (11.8-15.2); Lymphocytes % (Auto) 14.7 % (13.4-35.0); Mean Corpuscular HGB Conc 33 % (32-34); Mean Corpuscular Volume 91 fl (84-94); Monocytes # (Auto) 0.8 K/mm3 (0.0-0.8); Monocytes % (Auto) 12.1 % (0.0-7.3); Platelet Count 294 K/mm3 (140-440); Red Blood Count 3.62 M/mm3 (3.65-5.03); Red Cell Distribution Width 13.3 % (13.2-15.2)
[2021-08-18 05:30] LABS: Blood Urea Nitrogen 11 mg/dL (9-20); Calcium 8.4 mg/dL (8.4-10.2); Hemolysis Index 6
[2021-08-18 05:33] LABS: BUN/Creatinine Ratio 16
[2021-08-18] MEDS: AZITHROMYCIN 250 MG TAB PO SCH (09:14)
--- NOTE | 2021-08-18 10:37 | Progress Note ---
Assessment and Plan Assessment and plan: 80-year-old male with known history of dementia, cerebral atherosclerosis, BPH, hypertension, renal insufficiency resident of a intermediate Sent to the emergency room today for evaluation of generalized weakness and Fever. The patient is nonverbal and the history was obtained from the ER staff and the daughter. Upon arrival in the emergency room patient had a temperature of 100.8 F.(Axillary) Work-up in the emergency room reveals leukocytosis of 13.4, sodium of 152, potassium of 3.4 lactic acid of 3.3. Chest x-ray revealed bibasilar airspace opacities food service representative of pneumonia. The patient is admitted with diagnosis of sepsis, present on admission, bilateral pneumonia, Alzheimer's dementia, hyponatremia, hypokalemia. Severe sepsis. Patient meets criteria given the leukocytosis, fever and diagnosis of pneumonia as well as lactic acidosis. Bilateral pneumonia Alzheimer's dementia. Patient is nonverbal at baseline Hypernatremia Hypokalemia Protein calorie malnutrition. 08/16/2021. Continue IV antibiotics and follow-up blood, sputum and urine cultures. Continue hypotonic IV fluid hydration with half-normal saline for hypernatremia. Replete potassium as needed. 08/17/2021. Patient has slight improvement in leukocytosis and blood cultures remain negative. Speech therapy recommends pured diet with thin liquids. Continue hypertonic saline for hypernatremia. Anticipate discharge in the next 1 to 2 days 08/18/2021. Patient still with spiking temp of 100.7 last evening. However, leukocytosis has resolved. Hypernatremia has also resolved. Lactic acid within normal range. Blood cultures are negative x48 hours. Anticipate discharge in a.m. History Interval history: No new issues overnight Hospitalist Physical - Constitutional Vitals: Temp Pulse Resp BP Pulse Ox 99.7 F H 59 L 18 125/66 95 08/18/21 04:39 08/18/21 04:39 08/18/21 04:39 08/18/21 04:39 08/18/21 04:39 General appearance: Present: no acute distress, well-nourished, other (Dry oral Mucosa) - EENT Eyes: Present: PERRL, EOM intact ENT: hearing intact, clear oral mucosa, dentition normal - Neck Neck: Present: supple, normal ROM - Respiratory Respiratory effort: normal Respiratory: bilateral: CTA - Cardiovascular Rhythm: regular Heart Sounds: Present: S1 & S2. Absent: gallop, rub - Extremities Extremities: no ischemia, No edema, Full ROM - Abdominal General gastrointestinal: soft, non-tender, non-distended, normal bowel sounds - Integumentary Integumentary: Present: clear, warm, dry - Neurologic Neurologic: CNII-XII intact, moves all extremities HEART Score - HEART Score Troponin: Troponin T < 0.010 ng/mL (0.00-0.029) 08/15/21 21:25 Results - Labs CBC & Chem 7: 08/18/21 04:54 08/18/21 04:54 Labs: Laboratory Last Values WBC 6.7 K/mm3 (4.5-11.0) 08/18/21 04:54 RBC 3.62 M/mm3 (3.65-5.03) L 08/18/21 04:54 Hgb 10.8 gm/dl (11.8-15.2) L 08/18/21 04:54 Hct 33.0 % (35.5-45.6) L 08/18/21 04:54 MCV 91 fl (84-94) 08/18/21 04:54 MCH 30 pg (28-32) 08/18/21 04:54 MCHC 33 % (32-34) 08/18/21 04:54 RDW 13.3 % (13.2-15.2) 08/18/21 04:54 Plt Count 294 K/mm3 (140-440) 08/18/21 04:54 Lymph % (Auto) 14.7 % (13.4-35.0) 08/18/21 04:54 [place] % (Auto) 12.1 % (0.0-7.3) H 08/18/21 04:54 Eos % (Auto) 0.8 % (0.0-4.3) 08/18/21 04:54 Baso % (Auto) 0.7 % (0.0-1.8) 08/18/21 04:54 Lymph # (Auto) 1.0 K/mm3 (1.2-5.4) L 08/18/21 04:54 [place] # (Auto) 0.8 K/mm3 (0.0-0.8) 08/18/21 04:54 Eos # (Auto) 0.1 K/mm3 (0.0-0.4) 08/18/21 04:54 Baso # (Auto) 0.0 K/mm3 (0.0-0.1) 08/18/21 04:54 Seg Neutrophils % 71.7 % (40.0-70.0) H 08/18/21 04:54 Seg Neutrophils # 4.8 K/mm3 (1.8-7.7) 08/18/21 04:54 PT 15.2 Sec. (12.2-14.9) H 08/15/21 21:25 INR 1.08 (0.87-1.13) 08/15/21 21:25 APTT 40.4 Sec. (24.2-36.6) H 08/15/21 21:25 Sodium 146 mmol/L (137-145) H 08/18/21 04:54 Potassium 3.4 mmol/L (3.6-5.0) L 08/18/21 04:54 Chloride 110.7 mmol/L (98-107) H 08/18/21 04:54 Carbon Dioxide 25 mmol/L (22-30) 08/18/21 04:54 Anion Gap 14 mmol/L 08/18/21 04:54 BUN 11 mg/dL (9-20) 08/18/21 04:54 Creatinine 0.7 mg/dL (0.8-1.3) L 08/18/21 04:54 Estimated GFR > 60 ml/min 08/18/21 04:54 BUN/Creatinine Ratio 16 % 08/18/21 04:54 Glucose 88 mg/dL (75-100) 08/18/21 04:54 Lactic Acid 1.10 mmol/L (0.7-2.0) 08/16/21 09:44 Calcium 8.4 mg/dL (8.4-10.2) 08/18/21 04:54 Magnesium 2.70 mg/dL (1.7-2.3) H 08/15/21 21:25 Total Bilirubin 0.30 mg/dL (0.1-1.2) 08/15/21 21:25 AST 24 units/L (5-40) 08/15/21 21:25 ALT 14 units/L (7-56) 08/15/21 21:25 Alkaline Phosphatase 72 units/L (35-129) 08/15/21 21:25 Total Creatine Kinase 66 units/L (55-170) 08/15/21 21:25 Troponin T < 0.010 ng/mL (0.00-0.029) 08/15/21 21: Total Protein 7.5 g/dL (6.3-8.2) 08/15/21 21: Albumin 3.3 g/dL (3.9-5) L 08/15/21: Albumin/Globulin Ratio 0.8 % 08/15/21 21:25 Urine Color Yellow (Yellow) 08/16/21 00:02 Urine Turbidity Clear (Clear) 08/16/21 00:02 Urine pH 5.0 (5.0-7.0) 08/16/21 00:02 Ur Specific [place] 1.025 (1.003-1.030) 08/16/21 00:02 Urine Protein 30 mg/dl mg/dL (Negative) 08/16/21 00:02 Urine Glucose (UA) Neg mg/dL (Negative) 08/16/21 00:02 Urine Ketones Neg mg/dL (Negative) 08/16/21 00:02 Urine Blood Sm (Negative) 08/16/21 00:02 Urine Nitrite Neg (Negative) 08/16/21 00:02 Urine Bilirubin Neg (Negative) 08/16/21 00:02 Urine Urobilinogen < 2.0 mg/dL (<2.0) 08/16/21 00:02 Ur Leukocyte Esterase Neg (Negative) 08/16/21 00:02 Urine WBC (Auto) 3.0 /HPF (0.0-6.0) 08/16/21 00:02 Urine RBC (Auto) 5.0 /HPF (0.0-6.0) 08/16/21 00:02 U Epithel Cells (Auto) < 1.0 /HPF (0-13.0) 08/16/21 00:02 Urine Mucus 1+ /HPF 08/16/21 00:02 Microbiology: Microbiology 08/15/21 21:25 Peripheral/Venous Blood Culture - Preliminary NO GROWTH AFTER 48 HOURS 08/15/21 21:25 Peripheral/Venous Blood Culture - Preliminary NO GROWTH AFTER 48 HOURS [place]/IV: Voiding Method Indwelling Catheter Active Medications - Current Medications Current Medications: Generic Name Dose Route Start Last Admin Trade Name Freq PRN Reason Stop Dose Admin Acetaminophen 650 mg 08/15/21 23:16 08/18/21 02:41 Acetaminophen 325 Mg Tab PO 650 mg Q4H PRN Administration Pain MILD(1-3)/Fever >100.5/JONES Azithromycin 500 mg 08/17/21 10:00 08/18/21 09:14 Azithromycin 250 Mg Tab PO 08/20/21 10:01 500 mg QDAY SACHA Administration Heparin Sodium (Porcine) 5,000 unit 08/16/21 06:00 08/18/21 06:45 Heparin 5,000 Unit/1 Ml Vial SUB-Q 5,000 unit Q8HR SACHA Administration Sodium Chloride 1,000 mls @ 125 mls/hr 08/15/21 23:45 08/17/21 12:08 Nacl 0.45% 1000 Ml IV 125 mls/hr DIRECT SACHA Administration Ceftriaxone Sodium 2 gm in 100 mls @ 200 mls/hr 08/18/21 22:00 Rocephin/Ns 2 Gm/100 Ml IV 08/20/21 22:29 Q24H SACHA Protocol Magnesium Hydroxide 30 ml 08/15/21 23:16 Magnesium Hydroxide (Mom) Oral Liqd Udc PO Q4H PRN Constipation Morphine Sulfate 2 mg 08/15/21 23:16 Morphine 2 Mg/1 Ml Inj IV Q4H PRN Pain, Moderate (4-6) Morphine Sulfate 4 mg 08/15/21 23:16 Morphine 4 Mg/1 Ml Inj IV Q4H PRN Pain , Severe (7-10) Ondansetron HCl 4 mg 08/15/21 23:16 Ondansetron 4 Mg/2 Ml Inj IV Q8H PRN Nausea And Vomiting Sodium Chloride 10 ml 08/16/21 10:00 08/18/21 09:14 Sodium Chloride 0.9% 10 Ml Flush Syringe IV 10 ml BID SACHA Administration Sodium Chloride 10 ml 08/15/21 23:16 Sodium Chloride 0.9% 10 Ml Flush Syringe IV PRN PRN LINE FLUSH Nutrition/Malnutrition Assess - Dietary Evaluation Nutrition/Malnutrition Findings: Nutrition Notes Start: 08/16/21 16:56 Freq: Status: Active Protocol: Document 08/16/21 16:56 NICK (Rec: 08/16/21 17:05 NICK [id number]) Nutrition Notes Need for Assessment generated from: Low BMI Initial or Follow up Brief Note Current Diagnosis CKD(stage I-IV),Hypertension Other Pertinent Diagnosis Febrile Illness, Dehydration, Dementia, BPH. Current Diet Cardiac Diet (since 08/16), Pureed Diet (from 08/17). 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 At some point during the day, Body Weight was corrected and now Pt is no longer a Low BMI. Weight Status Appropriate Subjective/Other Information RD consult for Low BMI assessment. At some point during the day, Body Weight was corrected and now Pt is no longer a Low BMI. No reports available on Pt's PO intake of meals at the time . Pt is on Room Air, O2 saturation @ 99%, according to Vital Signs notes. Percent of energy/protein needs met: Prescribed Cardiac Diet provides for energy/protein needs (2,230 Kcal/85 g) during LOS. Prescribed Pureed Diet provides for energy/protein needs (1,804 Kcal/77 g) during LOS. Nutrition Intervention Revisit per MD consult or patient Sign Off request: Additional Comments Continue monitoring food tolerance, %PO intake of meals , and BM.
[2021-08-18] MEDS ORDERED: ACETAMINOPHEN 325 MG/10.15 ML ORAL LIQD UNIT DOSE FEEDTUBE PRN (16:49)
[2021-08-18] MEDS: SODIUM CHLORIDE 0.45% 1000 ML 1,000 ML IV SCH (17:27)
[2021-08-18] MEDS ORDERED: hydrALAZINE 20 MG/1 ML INJ IV PRN (18:00)
[2021-08-18] MEDS ORDERED: hydrALAZINE 20 MG/1 ML INJ IV SCH (18:00)
[2021-08-18] MEDS: cefTRIAXone/NS 2 GM/100 ML 2 GM/100 ML BAG IV SCH (21:39)
[2021-08-18] MEDS ORDERED: IBUPROFEN ORAL LIQD 100 MG/5 ML ORAL.LIQD PO ONE (22:26)
[2021-08-19] MEDS: HEPARIN 5,000 UNIT/1 ML VIAL SUB-Q SCH ×3 (05:48→22:59)
[2021-08-19 07:09] LABS: Basophils # (Auto) 0.1 K/mm3 (0.0-0.1); Eosinophils % (Auto) 0.6 % (0.0-4.3); Hematocrit 35.8 % (35.5-45.6); Hemoglobin 11.4 gm/dl (11.8-15.2); Lymphocytes # (Auto) 1.6 K/mm3 (1.2-5.4); Lymphocytes % (Auto) 20.3 % (13.4-35.0); Mean Corpuscular HGB Conc 32 % (32-34); Mean Corpuscular Volume 92 fl (84-94); Monocytes # (Auto) 0.9 K/mm3 (0.0-0.8); Monocytes % (Auto) 11.1 % (0.0-7.3); Platelet Count 286 K/mm3 (140-440); Red Cell Distribution Width 13.7 % (13.2-15.2)
[2021-08-19 07:17] LABS: Blood Urea Nitrogen 9 mg/dL (9-20); Calcium 8.5 mg/dL (8.4-10.2); Hemolysis Index 5
[2021-08-19 07:18] LABS: BUN/Creatinine Ratio 13
[2021-08-19] MEDS: AZITHROMYCIN 250 MG TAB PO SCH (09:01)
[2021-08-19] MEDS: SODIUM CHLORIDE 0.45% 1000 ML 1,000 ML IV SCH ×2 (09:02→15:48)
--- NOTE | 2021-08-19 12:10 | Progress Note ---
Assessment and Plan Assessment and plan: 80-year-old male with known history of dementia, cerebral atherosclerosis, BPH, hypertension, renal insufficiency resident of a [facility] Sent to the emergency room today for evaluation of generalized weakness and Fever. The patient is nonverbal and the history was obtained from the ER staff and the daughter. Upon arrival in the emergency room patient had a temperature of 100.8 F.(Axillary) Work-up in the emergency room reveals leukocytosis of 13.4, sodium of 152, potassium of 3.4 lactic acid of 3.3. Chest x-ray revealed bibasilar airspace opacities call center support representative of pneumonia. The patient is admitted with diagnosis of sepsis, present on admission, bilateral pneumonia, Alzheimer's dementia, hyponatremia, hypokalemia. Severe sepsis. Patient meets criteria given the leukocytosis, fever and diagnosis of pneumonia as well as lactic acidosis. Bilateral pneumonia Alzheimer's dementia. Patient is nonverbal at baseline Hypernatremia Hypokalemia Protein calorie malnutrition. 08/16/2021. Continue IV antibiotics and follow-up blood, sputum and urine cultures. Continue hypotonic IV fluid hydration with half-normal saline for hypernatremia. Replete potassium as needed. 08/17/2021. Patient has slight improvement in leukocytosis and blood cultures remain negative. Speech therapy recommends pured diet with thin liquids. Continue hypertonic saline for hypernatremia. Anticipate discharge in the next 1 to 2 days 08/18/2021. Patient still with spiking temp of 100.7 last evening. However, leukocytosis has resolved. Hypernatremia has also resolved. Lactic acid within normal range. Blood cultures are negative x48 hours. Anticipate discharge in a.m. 08/19/2021. Patient still with spiking fevers. We will consult ID for further evaluation. Blood cultures remain negative. Daughter is requesting PEG tube placement for protein calorie malnutrition. We will consult GI for further evaluation. History Interval history: No new issues overnight Hospitalist Physical - Constitutional Vitals: Temp Pulse Resp BP Pulse Ox 98.3 F 54 L 18 105/66 97 08/19/21 05:08 08/19/21 05:08 08/19/21 05:08 08/19/21 05:08 08/19/21 10:00 General appearance: Present: no acute distress, well-nourished, other (Dry oral Mucosa) - EENT Eyes: Present: PERRL, EOM intact ENT: hearing intact, clear oral mucosa, dentition normal - Neck Neck: Present: supple, normal ROM - Respiratory Respiratory effort: normal Respiratory: bilateral: CTA - Cardiovascular Rhythm: regular Heart Sounds: Present: S1 & S2. Absent: gallop, rub - Extremities Extremities: no ischemia, No edema, Full ROM - Abdominal General gastrointestinal: soft, non-tender, non-distended, normal bowel sounds - Integumentary Integumentary: Present: clear, warm, dry - Neurologic Neurologic: CNII-XII intact, moves all extremities HEART Score - HEART Score Troponin: Troponin T < 0.010 ng/mL (0.00-0.029) 08/15/21 21:25 Results - Labs CBC & Chem 7: 08/19/21 06:42 08/19/21 06:42 Labs: Laboratory Last Values WBC 8.0 K/mm3 (4.5-11.0) 08/19/21 06:42 RBC 3.90 M/mm3 (3.65-5.03) 08/19/21 06:42 Hgb 11.4 gm/dl (11.8-15.2) L 08/19/21 06:42 Hct 35.8 % (35.5-45.6) 08/19/21 06:42 MCV 92 fl (84-94) 08/19/21 06:42 MCH 29 pg (28-32) 08/19/21 06:42 MCHC 32 % (32-34) 08/19/21 06:42 RDW 13.7 % (13.2-15.2) 08/19/21 06:42 Plt Count 286 K/mm3 (140-440) 08/19/21 06:42 Lymph % (Auto) 20.3 % (13.4-35.0) 08/19/21 06:42 [place] % (Auto) 11.1 % (0.0-7.3) H 08/19/21 06:42 Eos % (Auto) 0.6 % (0.0-4.3) 08/19/21 06:42 Baso % (Auto) 1.0 % (0.0-1.8) 08/19/21 06:42 Lymph # (Auto) 1.6 K/mm3 (1.2-5.4) 08/19/21 06:42 [place] # (Auto) 0.9 K/mm3 (0.0-0.8) H 08/19/21 06:42 Eos # (Auto) 0.0 K/mm3 (0.0-0.4) 08/19/21 06:42 Baso # (Auto) 0.1 K/mm3 (0.0-0.1) 08/19/21 06:42 Seg Neutrophils % 67.0 % (40.0-70.0) 08/19/21 06:42 Seg Neutrophils # 5.4 K/mm3 (1.8-7.7) 08/19/21 06:42 PT 15.2 Sec. (12.2-14.9) H 08/15/21 21:25 INR 1.08 (0.87-1.13) 08/15/21 21:25 APTT 40.4 Sec. (24.2-36.6) H 08/15/21 21:25 Sodium 142 mmol/L (137-145) 08/19/21 06:42 Potassium 3.8 mmol/L (3.6-5.0) 08/19/21 06:42 Chloride 108.0 mmol/L (98-107) H 08/19/21 06:42 Carbon Dioxide 24 mmol/L (22-30) 08/19/21 06:42 Anion Gap 14 mmol/L 08/19/21 06:42 BUN 9 mg/dL (9-20) 08/19/21 06:42 Creatinine 0.7 mg/dL (0.8-1.3) L 08/19/21 06:42 Estimated GFR > 60 ml/min 08/19/21 06:42 BUN/Creatinine Ratio 13 % 08/19/21 06:42 Glucose 79 mg/dL (75-100) 08/19/21 06:42 Lactic Acid 1.10 mmol/L (0.7-2.0) 08/16/21 09:44 Calcium 8.5 mg/dL (8.4-10.2) 08/19/21 06:42 Magnesium 2.70 mg/dL (1.7-2.3) H 08/15/21 21:25 Total Bilirubin 0.30 mg/dL (0.1-1.2) 08/15/21 21:25 AST 24 units/L (5-40) 08/15/21 21:25 ALT 14 units/L (7-56) 08/15/21 21:25 Alkaline Phosphatase 72 units/L (35-129) 08/15/21 21:25 Total Creatine Kinase 66 units/L (55-170) 08/15/21 21:25 Troponin T < 0.010 ng/mL (0.00-0.029) 08/15/21 21:25 Total Protein 7.5 g/dL (6.3-8.2) 08/15/21 21:25 Albumin 3.3 g/dL (3.9-5) L 08/15/21 21: Albumin/Globulin Ratio 0.8 % 08/15/21 21:25 Urine Color Yellow (Yellow) 08/16/21 00:02 Urine Turbidity Clear (Clear) 08/16/21 00:02 Urine pH 5.0 (5.0-7.0) 08/16/21 00:02 Ur Specific [place] 1.025 (1.003-1.030) 08/16/21 00:02 Urine Protein 30 mg/dl mg/dL (Negative) 08/16/21 00:02 Urine Glucose (UA) Neg mg/dL (Negative) 08/16/21 00:02 Urine Ketones Neg mg/dL (Negative) 08/16/21 00:02 Urine Blood Sm (Negative) 08/16/21 00:02 Urine Nitrite Neg (Negative) 08/16/21 00:02 Urine Bilirubin Neg (Negative) 08/16/21 00:02 Urine Urobilinogen < 2.0 mg/dL (<2.0) 08/16/21 00:02 Ur Leukocyte Esterase Neg (Negative) 08/16/21 00:02 Urine WBC (Auto) 3.0 /HPF (0.0-6.0) 08/16/21 00:02 Urine RBC (Auto) 5.0 /HPF (0.0-6.0) 08/16/21 00:02 U Epithel Cells (Auto) < 1.0 /HPF (0-13.0) 08/16/21 00:02 Urine Mucus 1+ /HPF 08/16/21 00:02 Coronavirus (PCR) Negative (Negative) 08/18/21 Unknown Microbiology: Microbiology 08/15/21 21:25 Peripheral/Venous Blood Culture - Preliminary NO GROWTH AFTER 72 HOURS 08/15/21 21:25 Peripheral/Venous Blood Culture - Preliminary NO GROWTH AFTER 72 HOURS Carpenter/IV: Voiding Method Indwelling Catheter Active Medications - Current Medications Current Medications: Generic Name Dose Route Start Last Admin Trade Name Freq PRN Reason Stop Dose Admin Acetaminophen 650 mg 08/18/21 16:49 08/18/21 17:26 Acetaminophen 325 Mg/10.15 Ml Oral Liqd Unit Dose FEEDTUBE 650 mg Q6H PRN Administration Pain, Mild (1-3) Azithromycin 500 mg 08/17/21 10:00 08/19/21 09:01 Azithromycin 250 Mg Tab PO 08/20/21 10:01 500 mg QDAY SACHA Administration Heparin Sodium (Porcine) 5,000 unit 08/16/21 06:00 08/19/21 05:48 Heparin 5,000 Unit/1 Ml Vial SUB-Q 5,000 unit Q8HR SACHA Administration Hydralazine HCl 10 mg 08/18/21 18:00 Hydralazine 20 Mg/1 Ml Inj IV Q4H PRN SEE DOSE INSTRUCTION Sodium Chloride 1,000 mls @ 125 mls/hr 08/15/21 23:45 08/19/21 09:02 Nacl 0.45% 1000 Ml IV 125 mls/hr DIRECT SACHA Administration Ceftriaxone Sodium 2 gm in 100 mls @ 200 mls/hr 08/18/21 22:00 08/18/21 21:39 Rocephin/Ns 2 Gm/100 Ml IV 08/20/21 22:29 200 mls/hr Q24H SACHA Administration Protocol Magnesium Hydroxide 30 ml 08/15/21 23:16 Magnesium Hydroxide (Mom) Oral Liqd Udc PO Q4H PRN Constipation Morphine Sulfate 2 mg 08/15/21 23:16 Morphine 2 Mg/1 Ml Inj IV Q4H PRN Pain, Moderate (4-6) Morphine Sulfate 4 mg 08/15/21 23:16 Morphine 4 Mg/1 Ml Inj IV Q4H PRN Pain , Severe (7-10) Ondansetron HCl 4 mg 08/15/21 23:16 Ondansetron 4 Mg/2 Ml Inj IV Q8H PRN Nausea And Vomiting Sodium Chloride 10 ml 08/16/21 10:00 08/18/21 21:39 Sodium Chloride 0.9% 10 Ml Flush Syringe IV 10 ml BID SACHA Administration Sodium Chloride 10 ml 08/15/21 23:16 Sodium Chloride 0.9% 10 Ml Flush Syringe IV PRN PRN LINE FLUSH Nutrition/Malnutrition Assess - Dietary Evaluation Nutrition/Malnutrition Findings: Nutrition Notes Start: 08/16/21 16:56 Freq: Status: Active Protocol: Document 08/16/21 16:56 NICK (Rec: 08/16/21 17:05 NICK [id number]) Nutrition Notes Need for Assessment generated from: Low BMI Initial or Follow up Brief Note Current Diagnosis CKD(stage I-IV),Hypertension Other Pertinent Diagnosis Febrile Illness, Dehydration, Dementia, BPH. Current Diet Cardiac Diet (since 08/16), Pureed Diet (from 08/17). 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 At some point during the day, Body Weight was corrected and now Pt is no longer a Low BMI. Weight Status Appropriate Subjective/Other Information RD consult for Low BMI assessment. At some point during the day, Body Weight was corrected and now Pt is no longer a Low BMI. No reports available on Pt's PO intake of meals at the time . Pt is on Room Air, O2 saturation @ 99%, according to Vital Signs notes. Percent of energy/protein needs met: Prescribed Cardiac Diet provides for energy/protein needs (2,230 Kcal/85 g) during LOS. Prescribed Pureed Diet provides for energy/protein needs (1,804 Kcal/77 g) during LOS. Nutrition Intervention Revisit per MD consult or patient Sign Off request: Additional Comments Continue monitoring food tolerance, %PO intake of meals , and BM.
--- NOTE | 2021-08-19 15:11 | Gastroenterology Consultation ---
History of Present Illness - Reason for Consult Consult date: 08/19/21 peg tube placement Requesting physician: JOHNNIE DIAZ - History of Present Illness The patient is a 80 yo male with h/o dementia who presents from [facility] due to decreased oral intake, cough and admitted for sepsis (pneumonia). on abx, has had poor po intake per chart review, family/daughter requesting peg tube placement. pt non-verbal at time of exam, unable to provide history thus primarily obtained from chart review. Past History Past Medical History: hypertension, renal failure, other (Dementia,depression,BPH) Past Surgical History: No surgical history Social history: other (Lives in a [facility]) Family history: no significant family history Medications and Allergies Allergies Allergy/AdvReac Type Severity Reaction Status Date / Time CLIFF Inhibitors AdvReac Unknown Verified 08/15/21 18:20 donepezil [From Aricept] AdvReac Unknown Verified 08/15/21 18:20 Penicillins AdvReac Unknown Verified 08/15/21 18:20 Active Meds: Active Medications Acetaminophen (Acetaminophen 325 Mg/10.15 Ml Oral Liqd Unit Dose) 650 mg FEEDTUBE Q6H PRN PRN Reason: Pain, Mild (1-3) Last Admin: 08/18/21 17:26 Dose: 650 mg Azithromycin (Azithromycin 250 Mg Tab) 500 mg PO QDAY SACHA Stop: 08/20/21 10:01 Last Admin: 08/19/21 09:01 Dose: 500 mg Heparin Sodium (Porcine) (Heparin 5,000 Unit/1 Ml Vial) 5,000 unit SUB-Q Q8HR SACHA Last Admin: 08/19/21 14:26 Dose: 5,000 unit Hydralazine HCl (Hydralazine 20 Mg/1 Ml Inj) 10 mg IV Q4H PRN PRN Reason: SEE DOSE INSTRUCTION Sodium Chloride (Nacl 0.45% 1000 Ml) 1,000 mls @ 125 mls/hr IV DIRECT SACHA Last Admin: 08/19/21 09:02 Dose: 125 mls/hr Ceftriaxone Sodium (Rocephin/Ns 2 Gm/100 Ml) 2 gm in 100 mls @ 200 mls/hr IV Q24H SACHA; Protocol Stop: 08/20/21 22:29 Last Admin: 08/18/21 21:39 Dose: 200 mls/hr Magnesium Hydroxide (Magnesium Hydroxide (Mom) Oral Liqd Udc) 30 ml PO Q4H PRN PRN Reason: Constipation Morphine Sulfate (Morphine 2 Mg/1 Ml Inj) 2 mg IV Q4H PRN PRN Reason: Pain, Moderate (4-6) Morphine Sulfate (Morphine 4 Mg/1 Ml Inj) 4 mg IV Q4H PRN PRN Reason: Pain , Severe (7-10) Ondansetron HCl (Ondansetron 4 Mg/2 Ml Inj) 4 mg IV Q8H PRN PRN Reason: Nausea And Vomiting Sodium Chloride (Sodium Chloride 0.9% 10 Ml Flush Syringe) 10 ml IV BID SACHA Last Admin: 08/19/21 14:24 Dose: 10 ml Sodium Chloride (Sodium Chloride 0.9% 10 Ml Flush Syringe) 10 ml IV PRN PRN PRN Reason: LINE FLUSH Reviewed/updated patient's home and current medications Review of Systems - Review of Systems ROS unobtainable: due to mental status Exam - Constitutional Vital Signs: Temp Pulse Resp BP Pulse Ox 98.0 F 63 16 120/72 98 08/19/21 12:20 08/19/21 12:20 08/19/21 12:20 08/19/21 12:20 08/19/21 12:20 General appearance: no acute distress, other (non-verbal) - Respiratory Respiratory effort: normal Respiratory: bilateral: CTA - Cardiovascular Rhythm: regular Heart Sounds: Present: S1 & S2 - Gastrointestinal General gastrointestinal: Present: soft, non-distended - Neurologic Neurological: disoriented - Labs CBC & Chem 7: 08/19/21 06:42 08/19/21 06:42 Lab Results: Laboratory Results - last 24 hr 08/19/21 08/19/21 06:42 06:42 WBC 8.0 RBC 3.90 Hgb 11.4 L Hct 35.8 MCV 92 MCH 29 MCHC 32 RDW 13.7 Plt Count 286 Lymph % (Auto) 20.3 [place] % (Auto) 11.1 H Eos % (Auto) 0.6 Baso % (Auto) 1.0 Lymph # (Auto) 1.6 [place] # (Auto) 0.9 H Eos # (Auto) 0.0 Baso # (Auto) 0.1 Seg Neutrophils % 67.0 Seg Neutrophils # 5.4 Sodium 142 Potassium 3.8 Chloride 108.0 H Carbon Dioxide 24 Anion Gap 14 BUN 9 Creatinine 0.7 L Estimated GFR > 60 BUN/Creatinine Ratio 13 Glucose 79 Calcium 8.5 Assessment and Plan 1. Oropharyngeal dysphagia/poor po intake - will plan for egd/peg tube on likely Friday if able to get consent from family/daughter. will check INR for tomorrow.
[2021-08-19] MEDS: cefTRIAXone/NS 2 GM/100 ML 2 GM/100 ML BAG IV SCH (22:58)
[2021-08-20 01:15] LABS: INR 1.01 (0.87-1.13)
[2021-08-20] MEDS: SODIUM CHLORIDE 0.45% 1000 ML 1,000 ML IV SCH (02:25)
[2021-08-20] MEDS: HEPARIN 5,000 UNIT/1 ML VIAL SUB-Q SCH ×3 (05:25→21:35)
--- NOTE | 2021-08-20 09:26 | Progress Note ---
Assessment and Plan Assessment and plan: 80-year-old male with known history of dementia, cerebral atherosclerosis, BPH, hypertension, renal insufficiency resident of a senior living Sent to the emergency room today for evaluation of generalized weakness and Fever. The patient is nonverbal and the history was obtained from the ER staff and the daughter. Upon arrival in the emergency room patient had a temperature of 100.8 F.(Axillary) Work-up in the emergency room reveals leukocytosis of 13.4, sodium of 152, potassium of 3.4 lactic acid of 3.3. 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 The patient is admitted with diagnosis of sepsis, present on admission, bilateral pneumonia, Alzheimer's dementia, hyponatremia, hypokalemia. Severe sepsis. Patient meets criteria given the leukocytosis, fever and diagnosis of pneumonia as well as lactic acidosis. Bilateral pneumonia Alzheimer's dementia. Patient is nonverbal at baseline Hypernatremia Hypokalemia Protein calorie malnutrition. 08/16/2021. Continue IV antibiotics and follow-up blood, sputum and urine cultures. Continue hypotonic IV fluid hydration with half-normal saline for hypernatremia. Replete potassium as needed. 08/17/2021. Patient has slight improvement in leukocytosis and blood cultures remain negative. Speech therapy recommends pured diet with thin liquids. Continue hypertonic saline for hypernatremia. Anticipate discharge in the next 1 to 2 days 08/18/2021. Patient still with spiking temp of 100.7 last evening. However, leukocytosis has resolved. Hypernatremia has also resolved. Lactic acid within normal range. Blood cultures are negative x48 hours. Anticipate discharge in a.m. 08/19/2021. Patient still with spiking fevers. We will consult ID for further evaluation. Blood cultures remain negative. Daughter is requesting PEG tube placement for protein calorie malnutrition. We will consult GI for further evaluation. 08/20/2021. GI plans for EGD/PEG tube placement tomorrow. Fevers have resolved past 24 hours. Continue IV antibiotics and await ID consultation. Patient with advanced dementia and is nonverbal at baseline. History Interval history: No new issues overnight Hospitalist Physical - Constitutional Vitals: Temp Pulse Resp BP Pulse Ox 98.5 F 56 L 18 138/59 100 08/20/21 05:44 08/20/21 05:44 08/20/21 05:44 05/02/22 05:44 08/20/21 05:44 General appearance: Present: no acute distress, well-nourished, other (Dry oral Mucosa) - EENT Eyes: Present: PERRL, EOM intact ENT: hearing intact, clear oral mucosa, dentition normal - Neck Neck: Present: supple, normal ROM - Respiratory Respiratory effort: normal Respiratory: bilateral: CTA - Cardiovascular Rhythm: regular Heart Sounds: Present: S1 & S2. Absent: gallop, rub - Extremities Extremities: no ischemia, No edema, Full ROM - Abdominal General gastrointestinal: soft, non-tender, non-distended, normal bowel sounds - Integumentary Integumentary: Present: clear, warm, dry - Neurologic Neurologic: CNII-XII intact, moves all extremities HEART Score - HEART Score Troponin: Troponin T < 0.010 ng/mL (0.00-0.029) 08/15/21 21:25 Results - Labs CBC & Chem 7: 08/19/21 06:42 08/19/21 06:42 Labs: Laboratory Last Values WBC 8.0 K/mm3 (4.5-11.0) 08/19/21 06:42 RBC 3.90 M/mm3 (3.65-5.03) 08/19/21 06:42 Hgb 11.4 gm/dl (11.8-15.2) L 08/19/21 06:42 Hct 35.8 % (35.5-45.6) 08/19/21 06:42 MCV 92 fl (84-94) 08/19/21 06:42 MCH 29 pg (28-32) 08/19/21 06:42 MCHC 32 % (32-34) 08/19/21 06:42 RDW 13.7 % (13.2-15.2) 08/19/21 06:42 Plt Count 286 K/mm3 (140-440) 08/19/21 06:42 Lymph % (Auto) 20.3 % (13.4-35.0) 08/19/21 06:42 Howard % (Auto) 11.1 % (0.0-7.3) H 08/19/21 06:42 Eos % (Auto) 0.6 % (0.0-4.3) 08/19/21 06:42 Baso % (Auto) 1.0 % (0.0-1.8) 08/19/21 06:42 Lymph # (Auto) 1.6 K/mm3 (1.2-5.4) 08/19/21 06:42 Howard # (Auto) 0.9 K/mm3 (0.0-0.8) H 08/19/21 06:42 Eos # (Auto) 0.0 K/mm3 (0.0-0.4) 08/19/21 06:42 Baso # (Auto) 0.1 K/mm3 (0.0-0.1) 08/19/21 06:42 Seg Neutrophils % 67.0 % (40.0-70.0) 08/19/21 06:42 Seg Neutrophils # 5.4 K/mm3 (1.8-7.7) 08/19/21 06:42 PT 14.4 Sec. (12.2-14.9) 08/20/21 00:22 INR 1.01 (0.87-1.13) 08/20/21 00:22 APTT 40.4 Sec. (24.2-36.6) H 08/15/21 21:25 Sodium 142 mmol/L (137-145) 08/19/21 06:42 Potassium 3.8 mmol/L (3.6-5.0) 08/19/21 06:42 Chloride 108.0 mmol/L (98-107) H 08/19/21 06:42 Carbon Dioxide 24 mmol/L (22-30) 08/19/21 06:42 Anion Gap 14 mmol/L 08/19/21 06:42 BUN 9 mg/dL (9-20) 08/19/21 06:42 Creatinine 0.7 mg/dL (0.8-1.3) L 08/19/21 06:42 Estimated GFR > 60 ml/min 08/19/21 06:42 BUN/Creatinine Ratio 13 % 08/19/21 06:42 Glucose 79 mg/dL (75-100) 08/19/21 06:42 Lactic Acid 1.10 mmol/L (0.7-2.0) 08/16/21 09:44 Calcium 8.5 mg/dL (8.4-10.2) 08/19/21 06:42 Magnesium 2.70 mg/dL (1.7-2.3) H 08/15/21 21: Total Bilirubin 0.30 mg/dL (0.1-1.2) 08/15/21 21:25 AST 24 units/L (5-40) 08/15/21 21:25 ALT 14 units/L (7-56) 08/15/21 21:25 Alkaline Phosphatase 72 units/L (35-129) 08/15/21 21: Total Creatine Kinase 66 units/L (55-170) 08/15/21 21: Troponin T < 0.010 ng/mL (0.00-0.029) 08/15/21 21: Total Protein 7.5 g/dL (6.3-8.2) 08/15/21: Albumin 3.3 g/dL (3.9-5) L 08/15/21 21: Albumin/Globulin Ratio 0.8 % 08/15/21 21:25 Urine Color Yellow (Yellow) 08/16/21 00:02 Urine Turbidity Clear (Clear) 08/16/21 00:02 Urine pH 5.0 (5.0-7.0) 08/16/21 00:02 Ur Specific [place] 1.025 (1.003-1.030) 08/16/21 00:02 Urine Protein 30 mg/dl mg/dL (Negative) 08/16/21 00:02 Urine Glucose (UA) Neg mg/dL (Negative) 08/16/21 00:02 Urine Ketones Neg mg/dL (Negative) 08/16/21 00:02 Urine Blood Sm (Negative) 08/16/21 00:02 Urine Nitrite Neg (Negative) 08/16/21 00:02 Urine Bilirubin Neg (Negative) 08/16/21 00:02 Urine Urobilinogen < 2.0 mg/dL (<2.0) 08/16/21 00:02 Ur Leukocyte Esterase Neg (Negative) 08/16/21 00:02 Urine WBC (Auto) 3.0 /HPF (0.0-6.0) 08/16/21 00:02 Urine RBC (Auto) 5.0 /HPF (0.0-6.0) 08/16/21 00:02 U Epithel Cells (Auto) < 1.0 /HPF (0-13.0) 08/16/21 00:02 Urine Mucus 1+ /HPF 08/16/21 00:02 Coronavirus (PCR) Negative (Negative) 08/18/21 Unknown Microbiology: Microbiology 08/15/21 21:25 Peripheral/Venous Blood Culture - Preliminary NO GROWTH AFTER 4 DAYS 08/15/21 21:25 Peripheral/Venous Blood Culture - Preliminary NO GROWTH AFTER 4 DAYS Carpenter/IV: Voiding Method Indwelling Catheter Active Medications - Current Medications Current Medications: Generic Name Dose Route Start Last Admin Trade Name Freq PRN Reason Stop Dose Admin Acetaminophen 650 mg 08/18/21 16:49 08/18/21 17:26 Acetaminophen 325 Mg/10.15 Ml Oral Liqd Unit Dose FEEDTUBE 650 mg Q6H PRN Administration Pain, Mild (1-3) Azithromycin 500 mg 08/17/21 10:00 08/19/21 09:01 Azithromycin 250 Mg Tab PO 08/20/21 10:01 500 mg QDAY SACHA Administration Heparin Sodium (Porcine) 5,000 unit 08/16/21 06:00 08/20/21 05:25 Heparin 5,000 Unit/1 Ml Vial SUB-Q 5,000 unit Q8HR SACHA Administration Hydralazine HCl 10 mg 08/18/21 18:00 Hydralazine 20 Mg/1 Ml Inj IV Q4H PRN SEE DOSE INSTRUCTION Sodium Chloride 1,000 mls @ 125 mls/hr 08/15/21 23:45 08/20/21 02:25 Nacl 0.45% 1000 Ml IV 125 mls/hr DIRECT SACHA Administration Ceftriaxone Sodium 2 gm in 100 mls @ 200 mls/hr 08/18/21 22:00 08/19/21 22:58 Rocephin/Ns 2 Gm/100 Ml IV 08/20/21 22:29 200 mls/hr Q24H SACHA Administration Protocol Magnesium Hydroxide 30 ml 08/15/21 23:16 Magnesium Hydroxide (Mom) Oral Liqd Udc PO Q4H PRN Constipation Morphine Sulfate 2 mg 08/15/21 23:16 Morphine 2 Mg/1 Ml Inj IV Q4H PRN Pain, Moderate (4-6) Morphine Sulfate 4 mg 08/15/21 23:16 Morphine 4 Mg/1 Ml Inj IV Q4H PRN Pain , Severe (7-10) Ondansetron HCl 4 mg 08/15/21 23:16 Ondansetron 4 Mg/2 Ml Inj IV Q8H PRN Nausea And Vomiting Sodium Chloride 10 ml 08/16/21 10:00 08/19/21 22:59 Sodium Chloride 0.9% 10 Ml Flush Syringe IV 10 ml BID SACHA Administration Sodium Chloride 10 ml 08/15/21 23:16 Sodium Chloride 0.9% 10 Ml Flush Syringe IV PRN PRN LINE FLUSH Nutrition/Malnutrition Assess - Dietary Evaluation Nutrition/Malnutrition Findings: Nutrition Notes Start: 08/16/21 16:56 Freq: Status: Active Protocol: Document 08/16/21 16:56 NICK (Rec: 08/16/21 17:05 NICK [email or web address]) Nutrition Notes Need for Assessment generated from: Low BMI Initial or Follow up Brief Note Current Diagnosis CKD(stage I-IV),Hypertension Other Pertinent Diagnosis Febrile Illness, Dehydration, Dementia, BPH. Current Diet Cardiac Diet (since 08/16), Pureed Diet (from 08/17). 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 At some point during the day, Body Weight was corrected and now Pt is no longer a Low BMI. Weight Status Appropriate Subjective/Other Information RD consult for Low BMI assessment. At some point during the day, Body Weight was corrected and now Pt is no longer a Low BMI. No reports available on Pt's PO intake of meals at the time . Pt is on Room Air, O2 saturation @ 99%, according to Vital Signs notes. Percent of energy/protein needs met: Prescribed Cardiac Diet provides for energy/protein needs (2,230 Kcal/85 g) during LOS. Prescribed Pureed Diet provides for energy/protein needs (1,804 Kcal/77 g) during LOS. Nutrition Intervention Revisit per MD consult or patient Sign Off request: Additional Comments Continue monitoring food tolerance, %PO intake of meals , and BM.
--- NOTE | 2021-08-20 10:42 | Event Note ---
Date: 08/20/21 will plan for egd/peg tube placement tomorrow. npo at midnight.
[2021-08-20] MEDS: AZITHROMYCIN 250 MG TAB PO SCH (10:52)
--- NOTE | 2021-08-20 11:54 | Consultation ---
History of Present Illness - Reason for Consult Consult date: 08/20/21 - History of Present Illness 80-year-old male past medical history dementia, BPH, hypertension, CKD who [facility] a [facility] was sent to the hospital due to weakness and fever. The patient is baseline nonverbal, as such the history is obtained from the chart. On admission he was found to have leukocytosis and a fever, found to have possible pneumonia on chest x-ray. Afebrile now, was febrile over the weekend, white count improved from 13.4->8. Blood cultures no growth so far. Currently on ceftriaxone, completed azithromycin. Imaging personally reviewed: Chest x-ray: Bibasilar opacities possibly representing pneumonia. Past History Past Medical History: hypertension, renal failure, other (Dementia,depression,BPH) Past Surgical History: No surgical history Social history: other (Lives in a Group Home) Family history: no significant family history Medications and Allergies Allergies Allergy/AdvReac Type Severity Reaction Status Date / Time CLIFF Inhibitors AdvReac Unknown Verified 08/15/21 18:20 donepezil [From Aricept] AdvReac Unknown Verified 08/15/21 18:20 Penicillins AdvReac Unknown Verified 08/15/21 18:20 Active Meds: Active Medications Acetaminophen (Acetaminophen 325 Mg/10.15 Ml Oral Liqd Unit Dose) 650 mg FEEDTUBE Q6H PRN PRN Reason: Pain, Mild (1-3) Last Admin: 08/18/21 17:26 Dose: 650 mg Heparin Sodium (Porcine) (Heparin 5,000 Unit/1 Ml Vial) 5,000 unit SUB-Q Q8HR SACHA Last Admin: 08/20/21 05:25 Dose: 5,000 unit Hydralazine HCl (Hydralazine 20 Mg/1 Ml Inj) 10 mg IV Q4H PRN PRN Reason: SEE DOSE INSTRUCTION Sodium Chloride (Nacl 0.45% 1000 Ml) 1,000 mls @ 125 mls/hr IV DIRECT SACHA Last Admin: 08/20/21 02:25 Dose: 125 mls/hr Ceftriaxone Sodium (Rocephin/Ns 2 Gm/100 Ml) 2 gm in 100 mls @ 200 mls/hr IV Q24H SACHA; Protocol Stop: 08/20/21 22:29 Last Admin: 08/19/21 22:58 Dose: 200 mls/hr Magnesium Hydroxide (Magnesium Hydroxide (Mom) Oral Liqd Udc) 30 ml PO Q4H PRN PRN Reason: Constipation Morphine Sulfate (Morphine 2 Mg/1 Ml Inj) 2 mg IV Q4H PRN PRN Reason: Pain, Moderate (4-6) Morphine Sulfate (Morphine 4 Mg/1 Ml Inj) 4 mg IV Q4H PRN PRN Reason: Pain , Severe (7-10) Ondansetron HCl (Ondansetron 4 Mg/2 Ml Inj) 4 mg IV Q8H PRN PRN Reason: Nausea And Vomiting Sodium Chloride (Sodium Chloride 0.9% 10 Ml Flush Syringe) 10 ml IV BID SACHA Last Admin: 08/19/21 22:59 Dose: 10 ml Sodium Chloride (Sodium Chloride 0.9% 10 Ml Flush Syringe) 10 ml IV PRN PRN PRN Reason: LINE FLUSH Review of Systems ROS unobtainable: due to mental status Physical Examination - Physical Exam Narrative exam: Physical Exam: Constitutional: Awake, nonverbal Head, Ears, Nose: Normocephalic, atraumatic. External ears, nose normal Eyes: Conjunctivae/corneas clear. No icterus. No ptosis. Neck: Supple, no meningeal signs Oral: dentition fair, no thrush Cardiovascular: S1, S2 normal. Respiratory: Good air entry, clear to auscultation bilaterally GI: Soft, non-tender; bowel sounds normal. No peritoneal signs. Musculoskeletal: No pedal edema, no cyanosis. Skin: No rash or abscess Hem/Lymphatic: No palpable cervical or supraclavicular nodes. No lymphangitis Psych: Nonverbal Neurological: Awake, nonverbal - Constitutional Vitals: Vital Signs Temp Pulse Resp BP Pulse Ox 98.5 F 56 L 18 138/59 100 08/20/21 05:44 08/20/21 05:44 08/20/21 05:44 08/20/21 05:44 08/20/21 05:44 Temperature -Last 24 Hours Temperature 98.5 F Temperature 99.5 F Temperature 97.7 F Temperature 98.0 F Results - Labs CBC & Chem 7: 08/19/21 06:42 08/19/21 06:42 Assessment and Plan Cultures: Blood culture no growth so far A/P: 80-year-old male past medical history dementia, BPH, hypertension, CKD now with: #Bilateral pneumonia: Not hypoxic. On room air. #Acute sepsis: Present on admission with fever and leukocytosis. Leukocytosis quickly resolved, fevers were present over the weekend, but has been afebrile for past 36 hours. As such would not adjust antibiotics at present. #Dementia: Nonverbal status #CKD: Renally dose antibiotics. Recs: -Complete 5 days ceftriaxone 2g q24h -Can DC with omnicef 300mg q12h to complete above course Thank you for the consult, we will continue to follow. Julio Cesar Hartman MD [facility] ([facility] O: [phone] F: [phone]
[2021-08-20] MEDS: cefTRIAXone/NS 2 GM/100 ML 2 GM/100 ML BAG IV SCH (21:35)
[2021-08-21] MEDS: HEPARIN 5,000 UNIT/1 ML VIAL SUB-Q SCH ×2 (05:32→14:16)
[2021-08-21] MEDS: SODIUM CHLORIDE 0.45% 1000 ML 1,000 ML IV SCH (05:52)
[2021-08-21] MEDS ORDERED: SODIUM CHLORIDE 0.9% 1000 ML 1,000 ML ONE (11:45)
[2021-08-21] MEDS ORDERED: ceFAZolin/Water 2 GM/20 ML 2 GM/20 ML SYRINGE IV ONE (11:51)
[2021-08-21] MEDS ORDERED: LIDOCAINE MPF (2%) 20 MG/1 ML VIAL 5 ML ONE (11:52)
[2021-08-21] MEDS ORDERED: propofoL 200 MG/20 ML VIAL IV ONE (11:53)
[2021-08-21] MEDS ORDERED: HALOPERIDOL 1 MG TAB PO SCH (12:00)
[2021-08-21] MEDS ORDERED: cefTRIAXone/NS 2 GM/100 ML 2 GM/100 ML BAG IV SCH (12:00)
[2021-08-21] MEDS ORDERED: DIVALPROEX DR 125 MG TAB PO SCH (12:00)
--- NOTE | 2021-08-21 12:34 | Operative Report ---
Operative Report Operative Report: Esophagogastroduodenoscopy Procedure Note with PEG tube placement Date of procedure: 08/21/2021 Endoscopist: Yoseph Haque Pre-op diagnosis/indication: Oropharyngeal dysphagia Post-op diagnosis: Successful PEG tube placement MEDICATIONS: MAC, ancef 2 grams COMPLICATIONS: No immediate complications ESTIMATED BLOOD LOSS: Minimal DESCRIPTION OF PROCEDURE: After consent was obtained from the patient's daughter, the patient was placed in the supine position. The olympus endoscope was inserted into the patient's mouth under direct vision and advanced to the 2nd portion of the duodenum without difficulty. The patient tolerated the procedure well. The views of the mucosa were good. The patient's vital signs were monitored continuously throughout the procedure. The stomach was transilluminated and an optimal position for the PEG tube was identified using the single poke method. The skin was infiltrated with local lidocaine, followed by a small incision. The needle and sheath were inserted through the abdomen into the stomach under direct visualization. The needle was removed and a guidewire was inserted through the sheath. The guidewire was grasped from above with a snare. It was removed completely and the 20 Fr PEG tube was secured to the guidewire. The guidewire and PEG tube were then pulled through the mouth and esophagus and snug to the abdominal wall. The endoscope was re-inserted which showed good positioning of the internal bumper. FINDINGS: The esophagus appeared normal. The stomach appeared normal. PEG tube placed as above. The duodenum appeared normal. IMPRESSION: 1. Unremarkable upper endoscopy with successful peg tube placement RECOMMENDATIONS: -can use peg tube for medications after 2 hours, and for tube feedings after 6 hours if no new symptoms. tube feedings per nutrition recommendations. post peg care daily. will follow-up tomorrow. discussed with patient's daughter over the phone.
--- NOTE | 2021-08-21 12:46 | Progress Note ---
Assessment and Plan Assessment and plan: 80-year-old male with known history of dementia, cerebral atherosclerosis, BPH, hypertension, renal insufficiency resident of a group home Sent to the emergency room today for evaluation of generalized weakness and Fever. The patient is nonverbal and the history was obtained from the ER staff and the daughter. Upon arrival in the emergency room patient had a temperature of 100.8 F.(Axillary) Work-up in the emergency room reveals leukocytosis of 13.4, sodium of 152, potassium of 3.4 lactic acid of 3.3. Chest x-ray revealed bibasilar airspace opacities scheduling representative of pneumonia. The patient is admitted with diagnosis of sepsis, present on admission, bilateral pneumonia, Alzheimer's dementia, hyponatremia, hypokalemia. Severe sepsis. Patient meets criteria given the leukocytosis, fever and diagnosis of pneumonia as well as lactic acidosis. Bilateral pneumonia Alzheimer's dementia. Patient is nonverbal at baseline Hypernatremia Hypokalemia Lactic acidosis secondary to sepsis Protein calorie malnutrition. 08/16/2021. Continue IV antibiotics and follow-up blood, sputum and urine cultures. Continue hypotonic IV fluid hydration with half-normal saline for hypernatremia. Replete potassium as needed. 08/17/2021. Patient has slight improvement in leukocytosis and blood cultures remain negative. Speech therapy recommends pured diet with thin liquids. Continue hypertonic saline for hypernatremia. Anticipate discharge in the next 1 to 2 days 08/18/2021. Patient still with spiking temp of 100.7 last evening. However, leukocytosis has resolved. Hypernatremia has also resolved. Lactic acid within normal range. Blood cultures are negative x48 hours. Anticipate discharge in a.m. 08/19/2021. Patient still with spiking fevers. We will consult ID for further evaluation. Blood cultures remain negative. Daughter is requesting PEG tube placement for protein calorie malnutrition. We will consult GI for further evaluation. 08/20/2021. GI plans for EGD/PEG tube placement tomorrow. Fevers have resolved past 24 hours. Continue IV antibiotics and await ID consultation. Patient with advanced dementia and is nonverbal at baseline. 08/21: Patient seen and examined this for EGD PEG placement today. ID input noted. Continue empiric antibiotics and be discharged on oral antibiotics at discharge. Patient remains nonverbal blood pressure mildly elevated today will address with as needed medication. Home medications also restarted. I called and discussed with MOHAN, advance care discussion she insists that the patient is a full code. 35 minutes counseling provided to her. Patient anticipates discharge in a.m. we will start tube feeds today. History Interval history: Patient seen and examined this morning. Awaiting PEG placement. Hospitalist Physical - Physical exam Narrative exam: VITAL SIGNS: Reviewed. GENERAL: The patient appears normally developed, marked temporal wasting chronically ill vital signs as documented. HEAD: No signs of head trauma. EYES: Pupils are equal. Extraocular motions intact. EARS: Hearing grossly intact. MOUTH: Oropharynx is normal. NECK: No adenopathy, no JVD. CHEST: Chest with clear breath sounds bilaterally. No wheezes, rales, or rhonchi. CARDIAC: Regular rate and rhythm. S1 and S2, without murmurs, gallops, or rubs. VASCULAR: No Edema. Peripheral pulses normal and equal in all extremities. ABDOMEN: Soft, non tender and non distended. No rebound or guarding, and no masses palpated. Bowel Sounds normal. MUSCULOSKELETAL: Good range of motion of all major joints. Extremities without clubbing, cyanosis or edema. NEUROLOGIC EXAM: Awake but confused dementia. No focal sensory or strength deficits. PSYCHIATRIC: Unable to assess SKIN: detail exam as documented in skin assessment - Constitutional Vitals: Temp Pulse Resp BP Pulse Ox 97.8 F 56 L 20 188/88 98 08/20/21 16:18 08/20/21 16:18 08/20/21 16:18 08/20/21 16:18 08/20/21 22:00 General appearance: Present: no acute distress, well-nourished, other (Dry oral Mucosa) HEART Score - HEART Score Troponin: Troponin T < 0.010 ng/mL (0.00-0.029) 08/15/21 21:25 Results - Labs CBC & Chem 7: 08/19/21 06:42 08/19/21 06:42 Labs: Laboratory Last Values WBC 8.0 K/mm3 (4.5-11.0) 08/19/21 06:42 RBC 3.90 M/mm3 (3.65-5.03) 08/19/21 06:42 Hgb 11.4 gm/dl (11.8-15.2) L 08/19/21 06:42 Hct 35.8 % (35.5-45.6) 08/19/21 06:42 MCV 92 fl (84-94) 08/19/21 06:42 MCH 29 pg (28-32) 08/19/21 06:42 MCHC 32 % (32-34) 08/19/21 06:42 RDW 13.7 % (13.2-15.2) 08/19/21 06:42 Plt Count 286 K/mm3 (140-440) 08/19/21 06:42 Lymph % (Auto) 20.3 % (13.4-35.0) 08/19/21 06:42 [place] % (Auto) 11.1 % (0.0-7.3) H 08/19/21 06:42 Eos % (Auto) 0.6 % (0.0-4.3) 08/19/21 06:42 Baso % (Auto) 1.0 % (0.0-1.8) 08/19/21 06:42 Lymph # (Auto) 1.6 K/mm3 (1.2-5.4) 08/19/21 06:42 [place] # (Auto) 0.9 K/mm3 (0.0-0.8) H 08/19/21 06:42 Eos # (Auto) 0.0 K/mm3 (0.0-0.4) 08/19/21 06:42 Baso # (Auto) 0.1 K/mm3 (0.0-0.1) 08/19/21 06:42 Seg Neutrophils % 67.0 % (40.0-70.0) 08/19/21 06:42 Seg Neutrophils # 5.4 K/mm3 (1.8-7.7) 08/19/21 06:42 PT 14.4 Sec. (12.2-14.9) 08/20/21 00:22 INR 1.01 (0.87-1.13) 08/20/21 00:22 APTT 40.4 Sec. (24.2-36.6) H 08/15/21 21:25 Sodium 142 mmol/L (137-145) 08/19/21 06:42 Potassium 3.8 mmol/L (3.6-5.0) 08/19/21 06:42 Chloride 108.0 mmol/L (98-107) H 08/19/21 06:42 Carbon Dioxide 24 mmol/L (22-30) 08/19/21 06:42 Anion Gap 14 mmol/L 08/19/21 06:42 BUN 9 mg/dL (9-20) 08/19/21 06:42 Creatinine 0.7 mg/dL (0.8-1.3) L 08/19/21 06:42 Estimated GFR > 60 ml/min 08/19/21 06:42 BUN/Creatinine Ratio 13 % 08/19/21 06:42 Glucose 79 mg/dL (75-100) 08/19/21 06:42 Lactic Acid 1.10 mmol/L (0.7-2.0) 08/16/21 09:44 Calcium 8.5 mg/dL (8.4-10.2) 08/19/21 06:42 Magnesium 2.70 mg/dL (1.7-2.3) H 08/15/21 21:25 Total Bilirubin 0.30 mg/dL (0.1-1.2) 08/15/21 21:25 AST 24 units/L (5-40) 08/15/21 21:25 ALT 14 units/L (7-56) 08/15/21 21:25 Alkaline Phosphatase 72 units/L (35-129) 08/15/21 21:25 Total Creatine Kinase 66 units/L (55-170) 08/15/21 21:25 Troponin T < 0.010 ng/mL (0.00-0.029) 08/15/21 21:25 Total Protein 7.5 g/dL (6.3-8.2) 08/15/21 21:25 Albumin 3.3 g/dL (3.9-5) L 08/15/21 21:25 Albumin/Globulin Ratio 0.8 % 08/15/21 21:25 Urine Color Yellow (Yellow) 08/16/21 00:02 Urine Turbidity Clear (Clear) 08/16/21 00:02 Urine pH 5.0 (5.0-7.0) 08/16/21 00:02 Ur Specific [place] 1.025 (1.003-1.030) 08/16/21 00:02 Urine Protein 30 mg/dl mg/dL (Negative) 08/16/21 00:02 Urine Glucose (UA) Neg mg/dL (Negative) 08/16/21 00:02 Urine Ketones Neg mg/dL (Negative) 08/16/21 00:02 Urine Blood Sm (Negative) 08/16/21 00:02 Urine Nitrite Neg (Negative) 08/16/21 00:02 Urine Bilirubin Neg (Negative) 08/16/21 00:02 Urine Urobilinogen < 2.0 mg/dL (<2.0) 08/16/21 00:02 Ur Leukocyte Esterase Neg (Negative) 08/16/21 00:02 Urine WBC (Auto) 3.0 /HPF (0.0-6.0) 08/16/21 00:02 Urine RBC (Auto) 5.0 /HPF (0.0-6.0) 08/16/21 00:02 U Epithel Cells (Auto) < 1.0 /HPF (0-13.0) 08/16/21 00:02 Urine Mucus 1+ /HPF 08/16/21 00:02 Coronavirus (PCR) Negative (Negative) 08/18/21 Unknown Microbiology: Microbiology 08/15/21 21:25 Peripheral/Venous Blood Culture - Final NO GROWTH AFTER 5 DAYS 08/15/21 21:25 Peripheral/Venous Blood Culture - Final NO GROWTH AFTER 5 DAYS Carpenter/IV: Voiding Method Indwelling Catheter Active Medications - Current Medications Current Medications: Generic Name Dose Route Start Last Admin Trade Name Freq PRN Reason Stop Dose Admin Acetaminophen 650 mg 08/18/21 16:49 08/18/21 17:26 Acetaminophen 325 Mg/10.15 Ml Oral Liqd Unit Dose FEEDTUBE 650 mg Q6H PRN Administration Pain, Mild (1-3) Divalproex Sodium 125 mg 08/21/21 12:[address] 125 Mg Tab PO BID SACHA Haloperidol 0.5 mg 08/21/21 12:00 Haloperidol 1 Mg Tab PO BID SACHA Heparin Sodium (Porcine) 5,000 unit 08/16/21 06:00 08/21/21 05:32 Heparin 5,000 Unit/1 Ml Vial SUB-Q Not Given Q8HR SACHA Hydralazine HCl 10 mg 08/18/21 18:00 Hydralazine 20 Mg/1 Ml Inj IV Q4H PRN SEE DOSE INSTRUCTION Sodium Chloride 1,000 mls @ 125 mls/hr 08/15/21 23:45 08/21/21 05:52 Nacl 0.45% 1000 Ml IV 125 mls/hr DIRECT SACHA Administration Ceftriaxone Sodium 2 gm in 100 mls @ 200 mls/hr 08/21/21 12:00 Rocephin/Ns 2 Gm/100 Ml IV 08/22/21 12:29 Q24H SACHA Protocol Magnesium Hydroxide 30 ml 08/15/21 23:16 Magnesium Hydroxide (Mom) Oral Liqd Udc PO Q4H PRN Constipation Morphine Sulfate 2 mg 08/15/21 23:16 Morphine 2 Mg/1 Ml Inj IV Q4H PRN Pain, Moderate (4-6) Morphine Sulfate 4 mg 08/15/21 23:16 Morphine 4 Mg/1 Ml Inj IV Q4H PRN Pain , Severe (7-10) Ondansetron HCl 4 mg 08/15/21 23:16 Ondansetron 4 Mg/2 Ml Inj IV Q8H PRN Nausea And Vomiting Sodium Chloride 10 ml 08/16/21 10:00 08/20/21 21:35 Sodium Chloride 0.9% 10 Ml Flush Syringe IV 10 ml BID SACHA Administration Sodium Chloride 10 ml 08/15/21 23:16 Sodium Chloride 0.9% 10 Ml Flush Syringe IV PRN PRN LINE FLUSH Nutrition/Malnutrition Assess - Dietary Evaluation Nutrition/Malnutrition Findings: Nutrition Notes Start: 08/16/21 16:56 Freq: Status: Active Protocol: Document 08/16/21 16:56 NICK (Rec: 08/16/21 17:05 NICK [id number]) Nutrition Notes Need for Assessment generated from: Low BMI Initial or Follow up Brief Note Current Diagnosis CKD(stage I-IV),Hypertension Other Pertinent Diagnosis Febrile Illness, Dehydration, Dementia, BPH. Current Diet Cardiac Diet (since 08/16), Pureed Diet (from 08/17). 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 At some point during the day, Body Weight was corrected and now Pt is no longer a Low BMI. Weight Status Appropriate Subjective/Other Information RD consult for Low BMI assessment. At some point during the day, Body Weight was corrected and now Pt is no longer a Low BMI. No reports available on Pt's PO intake of meals at the time . Pt is on Room Air, O2 saturation @ 99%, according to Vital Signs notes. Percent of energy/protein needs met: Prescribed Cardiac Diet provides for energy/protein needs (2,230 Kcal/85 g) during LOS. Prescribed Pureed Diet provides for energy/protein needs (1,804 Kcal/77 g) during LOS. Nutrition Intervention Revisit per MD consult or patient Sign Off request: Additional Comments Continue monitoring food tolerance, %PO intake of meals , and BM.
--- NOTE | 2021-08-21 14:02 | Progress Note ---
Assessment and Plan Cultures: Blood culture no growth so far A/P: 80-year-old male past medical history dementia, BPH, hypertension, CKD now with: #Bilateral pneumonia: Not hypoxic. On room air. #Acute sepsis: Present on admission with fever and leukocytosis. Leukocytosis quickly resolved, fevers were present over the weekend, but has been afebrile for past 36 hours. As such would not adjust antibiotics at present. #Dementia: Nonverbal status #CKD: Renally dose antibiotics. Recs: -Complete 5 days ceftriaxone 2g q24h -Can DC with omnicef 300mg q12h to complete above course Thank you for the consult, we will continue to follow. Julio Cesar Hartman MD [facility] O: [phone] F: [phone] Subjective Date of service: 08/21/21 Interval history: Afebrile now, white count normal. Blood cultures negative. Taken for endoscopy today by GI. Objective - Exam Narrative Exam: Physical Exam: Constitutional: Awake, nonverbal Head, Ears, Nose: Normocephalic, atraumatic. External ears, nose normal Eyes: Conjunctivae/corneas clear. No icterus. No ptosis. Neck: Supple, no meningeal signs Oral: dentition fair, no thrush Cardiovascular: S1, S2 normal. Respiratory: Good air entry, clear to auscultation bilaterally GI: Soft, non-tender; bowel sounds normal. No peritoneal signs. Musculoskeletal: No pedal edema, no cyanosis. Skin: No rash or abscess Hem/Lymphatic: No palpable cervical or supraclavicular nodes. No lymphangitis Psych: Nonverbal Neurological: Awake, nonverbal - Constitutional Vitals: Vital Signs Temp Pulse Resp BP Pulse Ox 98 F 63 16 190/95 100 08/21/21 11:36 08/21/21 13:07 08/21/21 11:36 08/21/21 13:07 08/21/21 11:36 Temperature -Last 24 Hours Temperature 98 F Temperature 98 F Temperature 98.0 F Temperature 97.8 F - Labs CBC & Chem 7: 08/19/21 06:42 08/19/21 06:42
--- NOTE | 2021-08-21 14:30 | Discharge Summary ---
Providers - Providers Date of Admission: 08/15/21 23:18 Attending physician: LILY SCOTT MD 08/16/21 07:18 Consult to Wound/ET Nurse [CONS] Routine Reason For Exam: wound eval 08/16/21 11:07 Speech Therapy Evaluation and Treat [CONS] Routine Reason For Exam: swallow eval 08/19/21 12:08 Consult to Physician [CONS] Routine Comment: Consulting Provider: LETTY VASQUEZ Physician Instructions: Reason For Exam: sepsis 08/19/21 12:10 Consult to Physician [CONS] Routine Comment: Consulting Provider: GENET DOUGLAS Physician Instructions: Reason For Exam: PEG placement Primary care physician: LICENSING MANAGER Hospitalization Reason for admission: Sepsis Condition: Fair Hospital course: 80-year-old male with known history of dementia, cerebral atherosclerosis, BPH, hypertension, renal insufficiency resident of a [facility] Sent to the emergency room today for evaluation of generalized weakness and Fever. The patient is nonverbal and the history was obtained from the ER staff and the daughter. Upon arrival in the emergency room patient had a temperature of 100.8 F.(Axillary) Work-up in the emergency room reveals leukocytosis of 13.4, sodium of 152, potassium of 3.4 lactic acid of 3.3. Chest x-ray revealed bibasilar airspace opacities risk control representative of pneumonia. The patient is admitted with diagnosis of sepsis, present on admission, bilateral pneumonia, Alzheimer's dementia, hyponatremia, hypokalemia. Severe sepsis. Patient meets criteria given the leukocytosis, fever and diagnosis of pneumonia as well as lactic acidosis. Bilateral pneumonia Alzheimer's dementia. Patient is nonverbal at baseline Hypernatremia Hypokalemia Lactic acidosis secondary to sepsis Protein calorie malnutrition. 08/16/2021. Continue IV antibiotics and follow-up blood, sputum and urine cultures. Continue hypotonic IV fluid hydration with half-normal saline for hypernatremia. Replete potassium as needed. 08/17/2021. Patient has slight improvement in leukocytosis and blood cultures remain negative. Speech therapy recommends pured diet with thin liquids. Continue hypertonic saline for hypernatremia. Anticipate discharge in the next 1 to 2 days 08/18/2021. Patient still with spiking temp of 100.7 last evening. However, leukocytosis has resolved. Hypernatremia has also resolved. Lactic acid within normal range. Blood cultures are negative x48 hours. Anticipate discharge in a.m. 08/19/2021. Patient still with spiking fevers. We will consult ID for further evaluation. Blood cultures remain negative. Daughter is requesting PEG tube placement for protein calorie malnutrition. We will consult GI for further evaluation. 08/20/2021. GI plans for EGD/PEG tube placement tomorrow. Fevers have resolved past 24 hours. Continue IV antibiotics and await ID consultation. Patient with advanced dementia and is nonverbal at baseline. 08/21: Patient seen and examined this for EGD PEG placement today. ID input noted. Continue empiric antibiotics and be discharged on oral antibiotics at discharge. Patient remains nonverbal blood pressure mildly elevated today will address with as needed medication. Home medications also restarted. I called and discussed with MOHAN, advance care discussion she insists that the patient is a full code. 35 minutes counseling provided to her. Patient antic ipates discharge in a.m. we will start tube feeds today. On further reevaluation and following discussion with case management team and receiving facilities was determined that the patient can be discharged today. He will continue on Omnicef 300 mg every 12 hours and complete 5 days of therapy as requested by infectious disease Disposition: 03 ALF FACILITY Final Discharge Diagnosis (Prints w/discharge instructions): Severe sepsis etiology not determined Time spent for discharge: 35 mins Core Measure Documentation - Palliative Care Palliative Care/ Comfort Measures: Not Applicable - Core Measures Any of the following diagnoses?: none Exam - Physical Exam Narrative exam: VITAL SIGNS: Reviewed. GENERAL: The patient appears normally developed, marked temporal wasting chronically ill vital signs as documented. HEAD: No signs of head trauma. EYES: Pupils are equal. Extraocular motions intact. EARS: Hearing grossly intact. MOUTH: Oropharynx is normal. NECK: No adenopathy, no JVD. CHEST: Chest with clear breath sounds bilaterally. No wheezes, rales, or rhonchi. CARDIAC: Regular rate and rhythm. S1 and S2, without murmurs, gallops, or rubs. VASCULAR: No Edema. Peripheral pulses normal and equal in all extremities. ABDOMEN: Soft, PEG tube in place non tender and non distended. No rebound or guarding, and no masses palpated. Bowel Sounds normal. MUSCULOSKELETAL: Good range of motion of all major joints. Extremities without clubbing, cyanosis or edema. NEUROLOGIC EXAM: Awake but confused dementia. No focal sensory or strength deficits. PSYCHIATRIC: Unable to assess SKIN: detail exam as documented in skin assessment - Constitutional Vitals: Temp Pulse Resp BP Pulse Ox 98 F 63 16 190/95 100 08/21/21 11:36 08/21/21 13:07 08/21/21 11:36 08/21/21 13:07 08/21/21 11:36 Plan Activity: advance as tolerated, fall precautions Diet: per dietitian instruction Special Instructions: record daily weights, record daily BP diary Plan of Treatment: Please continue all home medication at previous doses and frequency. We did not have a complete medication history to do a proper reconciliation. Follow up with: PRIMARY CARE, [Primary Care Provider] - 7 Days Prescriptions: Divalproex [Jamie Roblero] 125 mg PO DAILY #30 tablet
[2021-08-21 17:07] VITALS: BP 131/32
--- NOTE | 2021-08-21 17:34 | Anesthesia Day of Surgery ---
Anesthesia Day of Surgery - Day of Surgery Patient Examined: Yes Patient H&P Reviewed: Yes Patient is NPO: Yes
--- NOTE | 2021-08-21 17:36 | Anesthesia Consultation ---
Anesthesia Consult and Med Hx Date of service: 08/21/21 - Airway Anesthetic Teeth Evaluation: Edentulous ROM Head & Neck: Adequate Mental/Hyoid Distance: Adequate Mallampati Class: Class I Intubation Access Assessment: Good - Pulmonary Exam CTA: Yes - Cardiac Exam Cardiac Exam: RRR - Pre-Operative Health Status ASA Pre-Surgery Classification: ASA3 Proposed Anesthetic Plan: MAC - Pulmonary Hx Pneumonia: Yes - Cardiovascular System Hx Hypertension: Yes - Central Nervous System Hx Neuromuscular Disorder: Yes (Alzheimer's) - Endocrine Hx Renal Disease: Yes (CRI) - Hematic Hx Anemia: Yes Hx Sickle Cell Disease: No - Other Systems Hx Obesity: No - Additional Comments Anesthesia Medical History Comments: NHR
--- NOTE | 2021-08-21 17:37 | Post Anesthesia Evaluation ---
- Post Anesthesia Evaluation Patient Participated: Yes Airway Patent: Yes Stable Respiratory Function: Yes Nausea/Vomiting: No Temp > 96.8F: Yes Pain Manageable: Yes Adequeate Hydration: Yes Anesthesia Complications: No Block Receding Appropriately: Not Applicable Patient on Ventilator: No
== END 2021-08-21 20:10 | DRG 871 ==
LOC: ED 18:00 → 3A 23:18
PROVIDERS: ADMIT Internal Medicine Geriatric Medicine; ATTEND Internal Medicine
PROC: 0DH63UZ Insertion of Feeding Device into Stomach, Percutaneous Approach (ICD-10-PCS; principal; 2021-08-21)
DX: A41.9 Sepsis, unspecified organism (principal); J18.9 Pneumonia, unspecified organism; E87.0 Hyperosmolality and hypernatremia; E46 Unspecified protein-calorie malnutrition; Z20.822 Contact with and (suspected) exposure to COVID-19; R65.20 Severe sepsis without septic shock; E86.0 Dehydration; E87.6 Hypokalemia; Z68.21 Body mass index [BMI] 21.0-21.9, adult; G30.9 Alzheimer's disease, unspecified; F02.80 Dementia in other diseases classified elsewhere, unspecified severity, without behavioral disturbance, psychotic disturbance, mood disturbance, and anxiety; F32.9 Major depressive disorder, single episode, unspecified; N40.0 Benign prostatic hyperplasia without lower urinary tract symptoms; R13.12 Dysphagia, oropharyngeal phase; I12.9 Hypertensive chronic kidney disease with stage 1 through stage 4 chronic kidney disease, or unspecified chronic kidney disease; Z88.0 Allergy status to penicillin; N18.9 Chronic kidney disease, unspecified; Z88.8 Allergy status to other drugs, medicaments and biological substances
CPT/HCPCS: 36415; 70450; 71045; 80048; 80053; 81001; 82140; 82550; 83735; 84484; 85025; 85610; 85730; 87040; 93005; 96365; 96367; 99285; G0378; J3490; J0360; J0456; J0690; J0696; J1644; J2704; J3480; J7030; U0003